=== PATIENT | female | born 1995 | race Hispanic/Latino ===

== ENCOUNTER 2018-12-06 17:59 | Emergency (ER) | payer OTHER, SELFPAY ==
[2018-12-06 18:40] LABS: Absolute Lymphocytes (CBC) 2.7 K/uL (0.7-4.9); Absolute Monocytes 0.5 K/uL (0.1-1.3); Absolute Neutrophil 4.6 K/uL (1.8-8.0); Basophils % 0.6 % (0-1.3); Eosinophils % 1.4 % (0-4.4); Hematocrit 38.1 % (36.0-45.0); Lymphocytes % 33.8 % (15.3-44.8); MPV 9.7 fL (7.6-11.3); Monocytes % 6.7 % (3.3-12.3); RBC Red Blood Cell Count 4.68 M/uL (3.86-4.86)
[2018-12-06 18:51] LABS: Urine Blood 2+ (NEG); Urine Glucose NEGATIVE (NEG); Urine Protein TRACE (NEG)
[2018-12-06 19:10] LABS: BUN Blood Urea Nitrogen 8 mg/dL (7-18); Bicarbonate 25 mmol/L (21-32); Glucose Level 89 mg/dL (74-106); HCG, Quantitative 5812 mIU/mL (1-3); Potassium 3.3 mmol/L (3.5-5.1); Sodium Level 139 mmol/L (136-145)
--- NOTE | 2018-12-06 19:26 | RAD REPORT ---
EXAM DESCRIPTION: US - Transvaginal OB - 12/06/2018 7:06 pm CLINICAL HISTORY: with vaginal bleeding COMPARISON: None. FINDINGS: The uterus a by 5 x 6 centimeters. A gestational sac is present within the endometrium. W ithin this is a yolk sac and pole with a crown-rump length 2 millimeters. Cardiac activity not seen Ovaries normal in size and echotexture 1.8 centimeter left ovarian cyst. An adnexal mass is not noted. No significant free fluid is seen. IMPRESSION: Single intrauterine with an estimated gestational age 5 weeks 3 days ARTEMIO 07/10
--- NOTE | 2018-12-06 19:57 | EDPHYS ---
Physician Documentation [facility] Name: Racquel Rolon Age: 23 yrs Sex: Female : 1995 Arrival Date: 12/06/2018 Time: 18:03 Bed 24 Private MD: ED Physician Frederick Crowder HPI: 12/06 18:14 This 23 yrs old Female presents to ER via Ambulatory with complaints of jmm Vaginal Bleeding, + Preg <12wks. 18:14 The patient presents to the emergency department with vaginal bleeding, that is light. jmm Patient complains of vaginal bleeding with abdominal cramping beginning today. Denies fever, denies vomiting. . 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 - Social history:: Smoking status: Patient/guardian denies using tobacco. - Ebola Screening: : No symptoms or risks identified at this time. ROS: 18:14 Constitutional: Negative for fever, chills, and weight loss, Cardiovascular: Negative jmm for chest pain, palpitations, and edema, Respiratory: Negative for shortness of breath, cough, wheezing, and pleuritic chest pain. 18:14 Abdomen/GI: Positive for abdominal pain. 18:14 : Positive for vaginal bleeding. 18:14 All other systems are negative. Exam: 18:14 Constitutional: This is a well developed, well nourished patient who is awake, alert, jmm and in no acute distress. Head/Face: atraumatic. Eyes: EOMI, no conjunctival erythema appreciated ENT: Moist Mucus Membranes Neck: Trachea midline, Supple Chest/axilla: Normal chest wall appearance and motion. Cardiovascular: Regular rate and rhythm. No edema appreciated Respiratory: Normal respirations, no respiratory distress appreciated 18:14 Abdomen/GI: Inspection: abdomen appears normal, Bowel sounds: normal, Palpation: abdomen is soft and non-tender, in all quadrants. 18:14 Back: ROM is normal. 18:14 Musculoskeletal/extremity: ROM: intact in all extremities. 18:14 Skin: Appearance: Color: normal in color. 18:14 Neuro: Orientation: is normal, Mentation: is normal, Memory: is normal. 18:14 Psych: Behavior/mood is pleasant, cooperative. Vital Signs: 18:11 BP 121 / 66; Pulse 83; Resp 16; Temp 98.6; Pulse Ox 100% ; Weight 104.33 kg; Height 5 sv ft. 5 in. (165.10 cm); Pain 5/10; 19:16 BP 108 / 57; Pulse 70; Resp 17 S; Temp 98.4(O); Pulse Ox 100% on R/A; ca1 20:06 BP 109 / 70; Pulse 76; Resp 17 S; Temp 98.2(O); Pulse Ox 100% on R/A; ca1 18:11 Body Mass Index 38.27 (104.33 kg, 165.10 cm) sv MDM: 18:14 Patient medically screened. [facility] 19:55 Data reviewed: vital signs, nurses notes. Counseling: I had a detailed discussion with natalie the patient and/or guardian regarding: the historical points, exam findings, and any diagnostic results supporting the discharge/admit diagnosis, lab results, radiology results, the need for outpatient follow up, to return to the emergency department if symptoms worsen or persist or if there are any questions or concerns that arise at home. ED course: Patient is alert and non toxic in appearance in the ED. US confirms IUP. Patient advised to follow up with OB and otherwise given strict return precautions for increased pain, weakness, or fever. Patient understood and agrees with the plan of care. . 12/06 18:17 Order name: Quantitative Hcg; Complete Time: 19:15 [facility] 12/06 18:17 Order name: Abo/rh Typing; Complete Time: 19:27 [facility] 12/06 18:17 Order name: Basic Metabolic Panel; Complete Time: 19:15 [facility] 12/06 18:17 Order name: CBC with Diff; Complete Time: 18:53 [facility] 12/06 18:46 Order name: Urine Dipstick--Ancillary (enter results); Complete Time: 18:53 12/06 18:46 Order name: Urine --Ancillary (enter results); Complete Time: 18:53 12/06 18:17 Order name: IV Saline Lock; Complete Time: 18:38 [facility] 12/06 18:17 Order name: Labs collected and sent; Complete Time: 18:38 [facility] 12/06 18:17 Order name: NPO; Complete Time: 18:38 [facility] 12/06 18:17 Order name: Urine Dipstick-Ancillary (obtain specimen); Complete Time: 18:38 [facility] 12/06 18:45 Order name: Transvaginal OB; Complete Time: 19:27 EDMS Administered Medications: No medications were administered Disposition: 12/06/18 19:56 Discharged to Home. Impression: Threatened . - Condition is Stable. - Discharge Instructions: Threatened Miscarriage, Vaginal Bleeding During , First Trimester, Pelvic Rest. - Medication Reconciliation Form, Thank You Letter, Antibiotic Education, Prescription Opioid Use form. - Work release form (12/06/18 20:10). ca1 - Follow up: Private Physician; When: 2 - 3 days; Reason: Recheck today's complaints, Continuance of care, Re-evaluation by your physician. Addendum: 12/09/2018 07:03 Co-signature as Attending Physician, Frederick Crowder MD I agree with the assessment and k dr plan of care. Signatures: Dispatcher [employer] [facility] Amena Oliver RN RN Frederick Crowder MD MD [facility] Augusto Dewey PA PA [facility] Macy Shetty, RN RN ca1 Corrections: (The following items were deleted from the chart) 12/06 18:45 18:19 OB Limited+US.RAD.BRZ ordered. [facility] 20:08 19:56 12/06/2018 19:56 Discharged to Home. Impression: Threatened . Condition ca1 is Stable. Forms are Medication Reconciliation Form, Thank You Letter, Antibiotic Education, Prescription Opioid Use. Follow up: Private Physician; When: 2 - 3 days; Reason: Recheck today's complaints, Continuance of care, Re-evaluation by your physician. [facility]
--- NOTE | 2018-12-06 19:57 | ER ---
Nurse's Notes [facility] Name: Racquel Rolon Age: 23 yrs Sex: Female : 1995 Arrival Date: 12/06/2018 Time: 18:03 Bed 24 Private MD: Diagnosis: Threatened Presentation: 12/06 18:10 Presenting complaint: Patient states: vaginal bleeding that started about an hour ago, sv spotting, pt is 5 weeks . Transition of care: patient was not received from another setting of care. Onset of symptoms was December 06, 2018 at 17:00. Initial Sepsis Screen: Does the patient meet any 2 criteria? No. Patient's initial sepsis screen is negative. Does the patient have a suspected source of infection? No. Patient's initial sepsis screen is negative. Care prior to arrival: None. 18:10 Method Of Arrival: Ambulatory sv 18:10 Acuity: MARTINA 3 sv 18:48 Risk Assessment: Do you want to hurt yourself or someone else? Patient reports no ca1 desire to harm self or others. Triage Assessment: 18:10 General: Appears in no apparent distress. comfortable, well developed, Behavior is sv calm, cooperative, appropriate for age. Pain: Complains of pain in suprapubic area Pain currently is 5 out of 10 on a pain scale. Quality of pain is described as crampy. Neuro: Level of Consciousness is awake, alert, obeys commands, Oriented to person, place, time, situation, Gait is steady. Respiratory: Respiratory effort is even, unlabored, Respiratory pattern is regular, symmetrical. : Reports vaginal bleeding that is spotty. 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 - Social history:: Smoking status: Patient/guardian denies using tobacco. - Ebola Screening: : No symptoms or risks identified at this time. Screenin:19 Abuse screen: Denies threats or abuse. Denies injuries from another. Nutritional ca1 screening: No deficits noted. Tuberculosis screening: No symptoms or risk factors identified. Fall Risk None identified. Assessment: 18:19 General: Appears in no apparent distress. comfortable, Behavior is calm, cooperative, ca1 appropriate for age. Pain: Complains of pain in abdomen and suprapubic area Pain does not radiate. Pain currently is 5 out of 10 on a pain scale. Pain began 1 hour ago. Neuro: Level of Consciousness is awake, alert, obeys commands, Oriented to person, place, time, situation. Cardiovascular: Heart tones S1 S2 present Capillary refill < 3 seconds Patient's skin is warm and dry. Respiratory: Airway is patent Respiratory effort is even, unlabored, Respiratory pattern is regular, symmetrical, Breath sounds are clear bilaterally. GI: Abdomen is round non-distended, Bowel sounds present X 4 quads. Abd is soft and non tender X 4 quads. : Urine is clear, Reports vaginal bleeding that is bright red, moderate flow, since an hour ago. EENT: No deficits noted. No signs and/or symptoms were reported regarding the EENT system. Derm: Skin is intact, is healthy with good turgor, Skin is pink, warm \T\ dry. Musculoskeletal: Circulation, motion, and sensation intact. Capillary refill < 3 seconds. 18:50 Reassessment: Pt to Ultrasound. ca1 19:16 Reassessment: Patient appears in no apparent distress at this time. Patient and/or ca1 family updated on plan of care and expected duration. Pain level reassessed. Patient is alert, oriented x 3, equal unlabored respirations, skin warm/dry/pink. 20:06 Reassessment: Patient appears in no apparent distress at this time. Patient is alert, ca1 oriented x 3, equal unlabored respirations, skin warm/dry/pink. Pt stable. Ambulated out of the ER with friend. No C/O pain. Vital Signs: 18:11 BP 121 / 66; Pulse 83; Resp 16; Temp 98.6; Pulse Ox 100% ; Weight 104.33 kg; Height 5 sv ft. 5 in. (165.10 cm); Pain 5/10; 19:16 BP 108 / 57; Pulse 70; Resp 17 S; Temp 98.4(O); Pulse Ox 100% on R/A; ca1 20:06 BP 109 / 70; Pulse 76; Resp 17 S; Temp 98.2(O); Pulse Ox 100% on R/A; ca1 18:11 Body Mass Index 38.27 (104.33 kg, 165.10 cm) sv ED Course: 18:03 Patient arrived in ED. mr 18:11 Triage completed. sv 18:12 Arm band placed on. sv 18:13 Augusto Dewey PA is PHCP. [facility] 18:13 Frederick Crowder MD is Attending Physician. [facility] 18:18 Macy Shetty, RN is Primary Nurse. ca1 18:19 Patient has correct armband on for positive identification. Placed in gown. Bed in low ca1 position. Call light in reach. Side rails up X 1. Pulse ox on. NIBP on. Warm blanket given. 18:23 Radiology exam delayed due to lab results not completed at this time. (HCG). cy 18:30 Inserted saline lock: 20 gauge in right antecubital area, using aseptic technique. ca1 Blood collected. 19:08 Transvaginal OB In Process Unspecified. EDMS 20:08 No provider procedures requiring assistance completed. IV discontinued, intact, ca1 bleeding controlled, No redness/swelling at site. Pressure dressing applied. Administered Medications: No medications were administered Outcome: 19:56 Discharge ordered by . [facility] 20:08 Discharged to home ambulatory, with friend. ca1 20:08 Condition: stable 20:08 Discharge instructions given to patient, Instructed on discharge instructions, follow up and referral plans. Demonstrated understanding of instructions, follow-up care. 20:08 Patient left the ED. ca1 Signatures: Dispatcher [employer] Amena Stringer RN RN Augusto Dewey PA PA Jennifer Gordon mr Henson, Jorge Alberto cy Macy Shetty, AMAURY RN ca1
== END 2018-12-06 20:08 | disposition home or self-care (01) ==
LOC: ER 17:59
DX: O20.0 Threatened abortion (principal); Z3A.01 Less than 8 weeks gestation of pregnancy
CPT/HCPCS: 36415; 76817; 80048; 81003; 81025; 84702; 85025; 86900; 86901; 99284

== ENCOUNTER 2020-05-26 19:13 | Emergency (ER) | payer SELFPAY ==
[2020-05-26 21:24] LABS: Barbiturates NEGATIVE (NEGATIVE); Benzodiazepines NEGATIVE (NEGATIVE); Cocaine NEGATIVE (NEGATIVE); METHAMPHETAM NEGATIVE (NEGATIVE); Methadone NEGATIVE (NEGATIVE); Opiates NEGATIVE (NEGATIVE); Phencyclidine NEGATIVE (NEGATIVE); THC Cannibis NEGATIVE (NEGATIVE)
[2020-05-26] MEDS ORDERED: PANTOPRAZOLE 40MG TABLET PO ONE (21:28)
[2020-05-26] MEDS ORDERED: MAGNES/ALUMIN/SIMET 30ML UCUP ONE (21:28)
[2020-05-26] MEDS ORDERED: ACETAMINOPHEN 325 MG TABLET ONE (21:28)
[2020-05-26 21:29] LABS: Absolute Lymphocytes (CBC) 2.2 K/uL (0.7-4.9); Basophils % 0.6 % (0-1.3); Hematocrit 38.7 % (36.0-45.0); Lymphocytes % 28.3 % (15.3-44.8); MPV 10.1 fL (7.6-11.3)
[2020-05-26] MEDS ORDERED: LIDOCAINE VISCOUS 2% SOLN 15 ML UDC ONE (21:29)
[2020-05-26 21:43] LABS: BUN Blood Urea Nitrogen 7 mg/dL (7-18); Bicarbonate 29 mmol/L (21-32); Glucose Level 90 mg/dL (74-106); Potassium 3.3 mmol/L (3.5-5.1); Sodium Level 140 mmol/L (136-145)
--- NOTE | 2020-05-26 21:56 | EDPHYS ---
Physician Documentation [facility] Name: Racquel Rolon Age: 24 yrs Sex: Female : 1995 Arrival Date: 05/26/2020 Time: 19:15 Bed 18 Private MD: ED Physician Gilson Crouch HPI: 05/26 21:05 This 24 yrs old Female presents to ER via Ambulatory with complaints of Chest pkl Pain - sharp pain when taking a breath. 21:05 The patient or guardian reports chest pain that is located primarily in the substernal pkl area. The pain does not radiate. Associated signs and symptoms: The patient has no apparent associated signs or symptoms. The chest pain is described as sharp. The patient has not experienced similar symptoms in the past. 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 - Social history:: Smoking status: Patient denies any tobacco usage or history of. ROS: 21:05 Eyes: Negative for injury, pain, redness, and discharge, ENT: Negative for injury, pkl pain, and discharge, Neck: Negative for injury, pain, and swelling. 21:05 Cardiovascular: Positive for chest pain, of the substernal. 21:05 Respiratory: Negative for cough, shortness of breath. 21:05 Abdomen/GI: Negative for abdominal pain, nausea, vomiting, and diarrhea. 21:05 Back: Negative for acute changes. 21:05 : Negative for urinary symptoms. 21:05 MS/extremity: Negative for acute changes, injury or acute deformity. 21:05 Skin: Negative for rash. 21:05 Neuro: Negative for altered mental status, loss of consciousness. Exam: 21:05 Head/Face: Normocephalic, atraumatic. Eyes: Pupils equal round and reactive to light, pkl extra-ocular motions intact. Lids and lashes normal. Conjunctiva and sclera are non-icteric and not injected. Cornea within normal limits. Periorbital areas with no swelling, redness, or edema. ENT: Nares patent. No nasal discharge, no septal abnormalities noted. Tympanic membranes are normal and external auditory canals are clear. Oropharynx with no redness, swelling, or masses, exudates, or evidence of obstruction, uvula midline. Mucous membranes moist. Neck: Trachea midline, no thyromegaly or masses palpated, and no cervical lymphadenopathy. Supple, full range of motion without nuchal rigidity, or vertebral point tenderness. No Meningismus. Chest/axilla: Normal chest wall appearance and motion. Nontender with no deformity. No lesions are appreciated. Cardiovascular: Regular rate and rhythm with a normal S1 and S2. No gallops, murmurs, or rubs. Normal PMI, no JVD. No pulse deficits. Respiratory: Lungs have equal breath sounds bilaterally, clear to auscultation and percussion. No rales, rhonchi or wheezes noted. No increased work of breathing, no retractions or nasal flaring. Abdomen/GI: Soft, non-tender, with normal bowel sounds. No distension or tympany. No guarding or rebound. No evidence of tenderness throughout. Back: No spinal tenderness. No costovertebral tenderness. Full range of motion. Skin: Warm, dry with normal turgor. Normal color with no rashes, no lesions, and no evidence of cellulitis. MS/ Extremity: Pulses equal, no cyanosis. Neurovascular intact. Full, normal range of motion. Neuro: Awake and alert, GCS 15, oriented to person, place, time, and situation. Cranial nerves II-XII grossly intact. Motor strength 5/5 in all extremities. Sensory grossly intact. Cerebellar exam normal. Normal gait. Vital Signs: 19:44 BP 126 / 78; Pulse 82; Resp 16; Temp 98.7; Pulse Ox 99% ; Weight 86.64 kg; Height 5 ft. sv 5 in. (165.10 cm); 22:00 BP 121 / 81; Pulse 81; Resp 16 S; Pulse Ox 100% on R/A; ca1 19:44 Body Mass Index 31.79 (86.64 kg, 165.10 cm) sv MDM: 20:52 Patient medically screened. pkl 21:48 Data reviewed: vital signs, nurses notes, lab test result(s), EKG, radiologic studies, pkl plain films. ED course: Patient feeling better. Discussed lab. EKG and X' rays results with patient. Advised to follow up with PCP next week. Patient understood instruction. 05/26 21:04 Order name: CBC with Diff; Complete Time: 21:43 pkl 05/26 21:04 Order name: Chem 7; Complete Time: 21:45 pkl 05/26 21:04 Order name: D-Dimer; Complete Time: 21:43 pkl 05/26 21:04 Order name: UDS; Complete Time: 21:44 pkl 05/26 21:04 Order name: XRAY CXR (1 view) pkl 05/26 19:53 Order name: EKG; Complete Time: 19:54 sv 05/26 19:53 Order name: EKG - Nurse/Tech; Complete Time: 19:53 sv 05/26 21:04 Order name: Saline Lock; Complete Time: 21:20 pkl Administered Medications: 21:13 Drug: Tylenol 650 mg Route: PO; ca1 22:07 Follow up: Response: No adverse reaction; Pain is decreased ca1 21:15 Drug: GI Cocktail without - (Maalox Suspension 30 ml, Lidocaine Liquid 2 % 15 ca1 ml) Route: PO; 22:08 Follow up: Response: No adverse reaction; Pain is decreased ca1 21:21 Drug: ProTONIX 40 mg Route: PO; ca1 22:07 Follow up: Response: No adverse reaction; Pain is decreased ca1 21:50 Drug: K-Dur 20 mEq Route: PO; ca1 22:07 Follow up: Response: No adverse reaction ca1 Disposition: 05/26/20 21:56 Discharged to Home. Impression: Chest pain. GERD. - Condition is Stable. - Prescriptions for Protonix 40 mg Oral Tablet, Delayed Release (E.C.) - take 1 tablet by ORAL route once daily; 10 tablet. - Medication Reconciliation Form, Thank You Letter, Antibiotic Education, Prescription Opioid Use form. - Follow up: Private Physician; When: 1 week; Reason: Re-evaluation by your physician. - Problem is new. - Symptoms have improved. Signatures: Dispatcher [employer] Amena Stringer RN RN sv Gilson Crouch MD MD pkl Macy Shetty RN RN ca1 Corrections: (The following items were deleted from the chart) 22:13 21:56 05/26/2020 21:56 Discharged to Home. Impression: Chest pain. GERD. Condition is ca1 Stable. Forms are Medication Reconciliation Form, Thank You Letter, Antibiotic Education, Prescription Opioid Use. Follow up: Private Physician; When: 1 week; Reason: Re-evaluation by your physician. Problem is new. Symptoms have improved. pkl
--- NOTE | 2020-05-26 21:56 | ER ---
Nurse's Notes [facility] Name: Racquel Rolon Age: 24 yrs Sex: Female : 1995 Arrival Date: 05/26/2020 Time: 19:15 Bed 18 Private MD: Diagnosis: Chest pain. GERD Presentation: 05/26 19:44 Chief complaint: Patient states: chest pain since this morning. Denies CP, fever. sv Coronavirus screen: Client denies travel out of the [place] in the last 14 days. At this time, the client does not indicate any symptoms associated with coronavirus-19. Ebola Screen: No symptoms or risks identified at this time. Initial Sepsis Screen: Does the patient meet any 2 criteria? No. Patient's initial sepsis screen is negative. Does the patient have a suspected source of infection? No. Patient's initial sepsis screen is negative. Risk Assessment: Do you want to hurt yourself or someone else? Patient reports no desire to harm self or others. Onset of symptoms was May 26, 2020. 19:44 Method Of Arrival: Ambulatory sv 19:44 Acuity: MARTINA 4 sv Triage Assessment: 19:46 General: Appears in no apparent distress. comfortable, Behavior is calm, cooperative, sv appropriate for age. Pain: Complains of pain in chest. Neuro: Level of Consciousness is awake, alert, obeys commands, Oriented to person, place, time, situation, Moves all extremities. Full function Gait is steady. Respiratory: Respiratory effort is even, unlabored, Respiratory pattern is regular, symmetrical. 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 - Social history:: Smoking status: Patient denies any tobacco usage or history of. Screenin:03 Abuse screen: Denies threats or abuse. Denies injuries from another. Nutritional ca1 screening: No deficits noted. Tuberculosis screening: No symptoms or risk factors identified. Fall Risk None identified. Assessment: 19:52 Reassessment: Ok by Dr Crouch to do an EKG. sv 21:03 General: Appears in no apparent distress. comfortable, Behavior is calm, cooperative, ca1 appropriate for age. Pain: Complains of pain in chest Pain does not radiate. Pain currently is 6 out of 10 on a pain scale. Pain began today. Neuro: Level of Consciousness is awake, alert, obeys commands, Oriented to person, place, time, situation. Cardiovascular: Heart tones S1 S2 present Capillary refill < 3 seconds Patient's skin is warm and dry. Respiratory: Airway is patent Respiratory effort is even, unlabored, Respiratory pattern is regular, symmetrical, Breath sounds are clear bilaterally. GI: Abdomen is round non-distended, Bowel sounds present X 4 quads. Abd is soft and non tender X 4 quads. : No signs and/or symptoms were reported regarding the genitourinary system. EENT: No signs and/or symptoms were reported regarding the EENT system. Derm: Skin is intact, is healthy with good turgor, Skin is pink, warm \T\ dry. Musculoskeletal: Circulation, motion, and sensation intact. Capillary refill < 3 seconds. 22:00 Reassessment: Patient appears in no apparent distress at this time. Patient and/or ca1 family updated on plan of care and expected duration. Pain level reassessed. Patient is alert, oriented x 3, equal unlabored respirations, skin warm/dry/pink. Vital Signs: 19:44 BP 126 / 78; Pulse 82; Resp 16; Temp 98.7; Pulse Ox 99% ; Weight 86.64 kg; Height 5 ft. sv 5 in. (165.10 cm); 22:00 BP 121 / 81; Pulse 81; Resp 16 S; Pulse Ox 100% on R/A; ca1 19:44 Body Mass Index 31.79 (86.64 kg, 165.10 cm) sv ED Course: 19:15 Patient arrived in ED. am2 19:44 Arm band placed on. sv 19:45 Triage completed. sv 19:52 EKG completed in triage. Results shown to MD. sv 20:52 Gilson Crouch MD is Attending Physician. pkl 20:57 Macy Shetty, AMAURY is Primary Nurse. ca1 21:03 Patient has correct armband on for positive identification. Placed in gown. Bed in low ca1 position. Call light in reach. Side rails up X 1. Pulse ox on. NIBP on. Warm blanket given. 21:05 No provider procedures requiring assistance completed. Patient maintains SpO2 ca1 saturation greater than 95% on room air. 21:11 UDS Sent. ca1 21:20 UDS Sent. ca1 21:23 Inserted saline lock: 20 gauge in left Blood collected. dh4 21:36 XRAY CXR (1 view) In Process Unspecified. EDMS 22:13 IV discontinued, intact, bleeding controlled, No redness/swelling at site. Pressure ca1 dressing applied. Administered Medications: 21:13 Drug: Tylenol 650 mg Route: PO; ca1 22:07 Follow up: Response: No adverse reaction; Pain is decreased ca1 21:15 Drug: GI Cocktail without - (Maalox Suspension 30 ml, Lidocaine Liquid 2 % 15 ca1 ml) Route: PO; 22:08 Follow up: Response: No adverse reaction; Pain is decreased ca1 21:21 Drug: ProTONIX 40 mg Route: PO; ca1 22:07 Follow up: Response: No adverse reaction; Pain is decreased ca1 21:50 Drug: K-Dur 20 mEq Route: PO; ca1 22:07 Follow up: Response: No adverse reaction ca1 Outcome: 21:56 Discharge ordered by . case 22:13 Discharged to home ambulatory. ca1 22:13 Condition: stable 22:13 Discharge instructions given to patient, Instructed on discharge instructions, follow up and referral plans. medication usage, Demonstrated understanding of instructions, follow-up care, medications, Prescriptions given X 1. 22:13 Patient left the ED. ca1 Signatures: Dispatcher [employer] EDMS Amena Oliver RN RN sv Lam, Pin, MD MD pkl Moreno, Amanda 2 Macy Shetty RN RN ca1 Tao Estevez 4 Corrections: (The following items were deleted from the chart) 19:47 19:44 Pulse 82bpm; Resp 16bpm; Pulse Ox 99%; Temp 98.7F; 86.64 kg; Height 5 ft. 5 in.; sv BMI: 31.7; sv
[2020-05-26] MEDS ORDERED: POTASSIUM CL SA 10 MEQ TAB PO ONE (22:19)
--- NOTE | 2020-05-27 06:04 | EKG ---
Test Date: 2020-05-26 Test Time: 19:49:55 Terminal Gauger: JOSY MEASUREMENT RESULTS: Intervals: Rate: 81 MI: 142 QRSD: 94 QT: 370 QTc: 429 [place]: P: 67 MI: 142 QRS: 69 T: 36 INTERPRETIVE STATEMENTS: Normal sinus rhythm with sinus arrhythmia Normal ECG No previous ECG available for comparison Electronically Signed On 05-27-20 06:02:59 FILM REPLACEMENT ORDERER by Farooq Ward
--- NOTE | 2020-05-27 08:01 | RAD REPORT ---
EXAM DESCRIPTION: RAD - Chest Single View - 05/26/2020 9:36 pm CLINICAL HISTORY: CHEST PAIN COMPARISON: None TECHNIQUE: AP portable chest image was obtained 05/26/2020 9:36 pm . FINDINGS: Lungs are clear. Heart and vasculature are normal. No measurable pleural effusion and no p neumothorax. No acute bony abnormality seen. No acute aortic findings suspected. IMPRESSION: No acute cardiopulmonary process.
[2020-05-27 08:35] VITALS: TEMP 98.7
[2020-05-27 08:36] VITALS: BP 121/81; O2SAT 100
== END 2020-05-26 22:13 | disposition home or self-care (01) ==
LOC: ER 19:13
DX: K21.9 Gastro-esophageal reflux disease without esophagitis (principal)
CPT/HCPCS: 36415; 71045; 80048; 80307; 85025; 85379; 93005; 99284

== ENCOUNTER 2020-10-01 14:28 | Emergency (ER) | payer OTHER, SELFPAY ==
--- OUTSIDE RECORDS SUMMARY | 2020-10-01 14:31 | XMS REPORT | Continuity of Care Document ---
:1995 Author Organization [facility] t Address [address] [place] [address] Care Team Providers Name Role Phone Unavailable Unavailable Unavailable Payers Payer Name Policy Type Policy Number Effective Date Expiration Date S ource Problems This patient has no known problems. Allergies, Adverse Reactions, Alerts Allergy Allergy Status Severity Reaction(s) Onset Inactive Treating Comm ents Source Name Type Date Date Clinician No Known DA Active U [facility] 07-28 [facility]: [facility] Medications This patient has no known medications. Procedures This patient has no known procedures. Results Test Description Test Time Test Comments Results Result [facility] e Comments FALLOPIAN 2019-07-30 TUBE,STERILIZATION 10:32:00 --------RUN DATE: 07/30/19 [facility] PAGE 1 RUN TIME: 1143 Specimen Inquiry RUN USER: INTERFACE --------PATIENT: CHAO REN LOC: [facility] U #: [id number] AGE/SX: ROOM: [facility] RE07/28/19REG DR: Azam Denis : [birth year] BED: A DIS: STATUS: ADM IN TLOC: -------- SPEC #: [id number] RECD: 07/28/19 STATUS: RUPERTO MARVA #: [id number] SHASHA: 07/28/19- SUBM DR: Azam Denis MD ENTERED: 07/29/19 SP TYPE: ELIEL BURR DR: ORDERED: LEVEL II SURGIC/2 CODES: C84058 - FALLOPIAN TUBE PROCEDURES: LEVEL II SURGIC (Incomplete) TISSUES: FALLOPIAN TUBE, NOS - BILATERAL FALLOPIAN TUBES CLINICAL HISTORY Not provided (wpd) FINAL DIAGNOSIS Right fallopian tube, ligation: - completely transected unremarkable fallopian tube Left fallopian tube, ligation: - completely transected unremarkable fallopian tube CPT code(s): 34835 x2 [facility] 07/30/19 GROSS DESCRIPTION ANATOMIC SOURCE OF TISSUE (per Requisition): Right and left fallopian tube (received in 2 containers) Each specimen is labeled with the patient's name and medical record number. Specimen #1 is designated "right fallopian tube" and consists of a 2.0 cm in length and 0.5 cm in diameter pink-purple and hyperemic segment of fallopian tube. The lumen is pinpoint. [employer] sections submitted as A1. Specimen #2 is designated "left fallopian tube" and consists of a 1.8 cm in length and 0.5 cm in diameter pink-purple and hyperemic segment of fallopian tube. The lumen is pinpoint. [employer] sections submitted as B1. marian 07/29/19 Signed Erika Cabello MD 07/30/19 1032 -------- END OF REPORT CBC W/AUTO DIFF 2019-07-29 04:59:00 Test Item Value Reference Range Interpretation Comme nts WHITE BLOOD CELL (test code = WBC) 9.4 K/mm3 6.6-12.1 N RED BLOOD CELL (test code = RBC) 3.84 M/mm3 3.45-5.01 N HEMOGLOBIN (test code = HGB) 10.3 g/dL 10.7-13.9 L HEMATOCRIT (test code = HCT) 32.7 % 32.1-42.1 N MEAN CELL VOLUME (test code = MCV) 85 fL 84.1-94.8 N MEAN CELL HGB (test code = MCH) 26.8 pg 27-35 L MEAN CELL HGB CONCETRATION (test code = MCHC) 31.5 gm/dL 32.2-34. 1 L RED CELL DISTRIBUTION WIDTH (test code = RDW) 13.2 % 12.4-16. 5 N PLATELET COUNT (test code = PLT) 122 K/mm3 133-385 L MEAN PLATELET VOLUME (test code = MPV) 13.2 fl 9.1-12.7 H NEUTROPHIL % (test code = NT%) 60.0 % 56.5-79.4 N LYMPHOCYTE % (test code = LY%) 32.3 % 14.3-34.3 N MONOCYTE % (test code = MO%) 6.8 % 5.1-10.4 N EOSINOPHIL % (test code = EO%) 0.5 % 0.1-3.0 N BASOPHIL % (test code = BA%) 0.2 % 0.1-1.0 N NEUTROPHIL # (test code = NT#) 5.6 K/mm3 LYMPHOCYTE # (test code = LY#) 3.0 K/mm3 MONOCYTE # (test code = MO#) 0.6 K/mm3 EOSINOPHIL # (test code = EO#) 0.05 K/mm3 BASOPHIL # (test code = BA#) 0.0 K/mm3 RBC MORPHOLOGY REQUIRED (test code = RBCM) NORMAL NORMAL PLATELET MORPHOLOGY REQUIRED (test code = PLTMR) NORMAL TARIK L COMPREHENSIVE METABOLIC [id number] 07:51:00 Test Item Value Reference Range Interpretation Comments SODIUM (test code = NA) 140 mEq/L 135-145 N POTASSIUM (test code = K) 4.4 mEq/L 3.5-5.0 N CHLORIDE (test code = CL) 104 mEq/L 100-115 N CARBON DIOXIDE (test code = CO2) 24 mEq/L 22-31 N ANION GAP (test code = GAP) 16.60 10-20 N GLUCOSE (test code = GLU) 78 mg/dL 65-110 N BLOOD UREA NITROGEN (test code = 7 mg/dL 7-18 N BUN) GLOMERULAR FILTRATION RATE (test 123 ml/min >60 N code = GFR) CREATININE (test code = CREAT) 0.6 mg/dL 0.5-1.0 N TOTAL PROTEIN (test code = PROT) 6.0 gm/dL 6.3-8.2 L ALBUMIN (test code = ALB) 2.6 gm/dL 3.4-4.8 L CALCIUM (test code = CA) 8.4 mg/dL 8.4-10.2 N BILIRUBIN TOTAL (test code = 0.3 mg/dL 0.2-1.0 N BILT) SGOT/AST (test code = AST) 38 units/L 15-37 H SGPT/ALT (test code = ALT) 51 units/L 12-78 N ALKALINE PHOSPHATASE TOTAL (test 259 units/L 46-116 H code = ALKP) AG HEPATITIS B [id number] 20:52:00 Test Item Value Reference Range Interpretation Comments AG HEPATITIS B SURFACE (test code NONREACTIVE NONREACTIVE = HBSAG) IS CONSENT FORM SIGNED FOR HIV TESTING? [facility] HEPATITIS C [id number] 20:52:00 Test Item Value Reference Range Interpretation Comments AB HEPATITIS C (test code = NONREACTIVE NONREACTIVE HCVAB) SIGNAL TO CUTOFF (test code = 0.13 <0.80 N CUTOFF) IS CONSENT FORM SIGNED FOR HIV TESTING? B [id number] 20:52:00 Test Item Value Reference Range Interpretation Comments AB TREPONEMA (test code = TREPAB) NONREACTIVE NONREACTIVE IS CONSENT FORM SIGNED FOR HIV TESTING? B HIV 1 20:52:00 Test Item Value Reference Range Interpretation Comments AB HIV 1 2 Nonreactive NonReactive It is recognize d that (test code = currently avail able [id number]) assays for thed etection of antibodies t o HIV-1 and/or HIV-2 ma y notdetect all i nfected individuals. A negative test result newman snot exclude the pos sibility of exposure to or infection withH IV. HIV antibodies may be undetectable in some stages ofthe in fection and in some cli nical conditions. IS CONSENT FORM SIGNED FOR HIV TESTING? YAB HIV 1 20:51:00 Test Item Value Reference Range Interpretation Comments AB HIV 1 2 Nonreactive NonReactive It is recognize d that (test code = currently avail able [id number]) assays for thed etection of antibodies t o HIV-1 and/or HIV-2 ma y notdetect all i nfected individuals. A negative test result newman snot exclude the pos sibility of exposure to or infection withH IV. HIV antibodies may be undetectable in some stages ofthe in fection and in some cli nical conditions. IS CONSENT FORM SIGNED FOR HIV TESTING? YAG HEPATITIS B [id number] 18:21:00 Test Item Value Reference Range Interpretation Comments AG HEPATITIS B SURFACE (test code NONREACTIVE NONREACTIVE = HBSAG) IS CONSENT FORM SIGNED FOR HIV TESTING? YAB HEPATITIS C [id number] 18:21:00 Test Item Value Reference Range Interpretation Comments AB HEPATITIS C (test code = NONREACTIVE NONREACTIVE HCVAB) SIGNAL TO CUTOFF (test code = 0.13 <0.80 N CUTOFF) IS CONSENT FORM SIGNED FOR HIV TESTING? YAB [id number] 18:21:00 Test Item Value Reference Range Interpretation Comments AB TREPONEMA (test code = TREPAB) NONREACTIVE NONREACTIVE IS CONSENT FORM SIGNED FOR HIV TESTING? YAB HIV 1 18:21:00 Test Item Value Reference Range Interpretation Comments AB HIV 1 2 (test code = [id number]) NONREACTIVE IS CONSENT FORM SIGNED FOR HIV TESTING? YAG HEPATITIS B [id number] 17:16:00 Test Item Value Reference Range Interpretation Comments AG HEPATITIS B SURFACE (test code NONREACTIVE NONREACTIVE = HBSAG) IS CONSENT FORM SIGNED FOR HIV TESTING? YAB HEPATITIS C [id number] 17:16:00 Test Item Value Reference Range Interpretation Comments AB HEPATITIS C (test code = HCVAB) NONREACTIVE SIGNAL TO CUTOFF (test code = CUTOFF) <0.80 IS CONSENT FORM SIGNED FOR HIV TESTING? YAB [id number] 17:16:00 Test Item Value Reference Range Interpretation Comments AB TREPONEMA (test code = TREPAB) NONREACTIVE NONREACTIVE IS CONSENT FORM SIGNED FOR HIV TESTING? YAB HIV 1 17:16:00 Test Item Value Reference Range Interpretation Comments AB HIV 1 2 (test code = RUU63RA) NONREACTIVE IS CONSENT FORM SIGNED FOR HIV TESTING? YCBC W/AUTO [id number] 16:25:00 Test Item Value Reference Range Interpretation Comments WHITE BLOOD CELL (test code = WBC) 6.1 K/mm3 6.6-12.1 L RED BLOOD CELL (test code = RBC) 4.13 M/mm3 3.45-5.01 N HEMOGLOBIN (test code = HGB) 11.3 g/dL 10.7-13.9 N HEMATOCRIT (test code = HCT) 35.2 % 32.1-42.1 N MEAN CELL VOLUME (test code = MCV) 85 fL 84.1-94.8 N MEAN CELL HGB (test code = MCH) 27.4 pg 27-35 N MEAN CELL HGB CONCETRATION (test 32.1 gm/dL 32.2-34.1 L code = MCHC) RED CELL DISTRIBUTION WIDTH (test 13.3 % 12.4-16.5 N code = RDW) PLATELET COUNT (test code = PLT) 132 K/mm3 133-385 L IMMATURE PLATELET FRACTION (test 0.0 % 0.0-10.8 N code = IPF) MEAN PLATELET VOLUME (test code = 13.2 fl 9.1-12.7 H MPV) NEUTROPHIL % (test code = NT%) 62.4 % 56.5-79.4 N LYMPHOCYTE % (test code = LY%) 30.8 % 14.3-34.3 N MONOCYTE % (test code = MO%) 5.4 % 5.1-10.4 N EOSINOPHIL % (test code = EO%) 0.8 % 0.1-3.0 N BASOPHIL % (test code = BA%) 0.3 % 0.1-1.0 N NEUTROPHIL # (test code = NT#) 3.8 K/mm3 LYMPHOCYTE # (test code = LY#) 1.9 K/mm3 MONOCYTE # (test code = MO#) 0.3 K/mm3 EOSINOPHIL # (test code = EO#) 0.05 K/mm3 BASOPHIL # (test code = BA#) 0.0 K/mm3 RBC MORPHOLOGY REQUIRED (test code NORMAL NORMAL = RBCM) PLATELET MORPHOLOGY REQUIRED (test NORMAL NORMAL code = PLTMR) - US NHW [id number] 10:31:00 Patient Name: CHAO REN Unit No: [id number] EXAMS: CPT CODE: [id number] [place] [address] [facility] [address] [address] OBSTETRICAL ULTRASOUND REPORT Pat. Name: CHAO REN Pat. No: [id number] Study Date: 06/27/2019 9:20am , Age: 05 1995, 23 Pregnancies: 4, Para 3 LMP:10/31/2018 GA by LMP: 34w1d GA by 1st: 34w1d GA by US: 36w2d GA Selected: 34w1d (LMP) ARTEMIO: 08/07/2019 Referring MD: KEATON Rubio Client Services Specialist: Anuradha Cardenas RDMS, RVT CPT4: [id number] Admitting MD: KEATON Rubio Hist/Ind: SCAN 2 34 WEEKS GROWTH MEASUREMENTS AGE GROWTH EVALUATION Measurement GA Range Srce %for GA Ratios ----- ---- ------- BPD 9.2 cm 38w0d (53b8w-93e9u) Hadl BPD >95 FL/BPD 0.73 (0.71 - 0.87) HC 34.4 cm 39w0d (44f4l-31g2o) Hadl HC >95 FL/AC 0.21 (0.20 - 0.24) APD 10.8 cm APD HC/AC 1.05 (0.94 - 1.13) TAD 10.0 cm TAD CI 0.78 (0.70 - 0.86) AC 32.7 cm 36w6d (54e6s-76k2u) Hadl AC >95 FL 6.7 cm 34w2d (64h7s-43i7m) Hadl FL 52% HL 5.8 cm 33w4d (92w8w-56t1m) Carloz HL 42% GA for sonogram 36w2d (45b9d-76l0e) Weight Estimate: based on (BPD,HC,AC,FL) Hadlock Weight: 2947 gm (8224-6791) Hadlo : 6lbs, 7oz Normal: 2241 gm (8177-6638) Brenn Wt% >90 for 34.1 wks Cervical Length: 3.2 cm Heart Rate: 142 bpm Amniotic Fluid Index: 13.4cm (08.1-24.8) Q1: 4.7cm Q2: 3.0cm Q3: 2.8cm Q4: 2.9cm CLINICAL SUMMARY Type of Gestation: Waters Intrauterine in vertex presentation. size is large for gestational age. growth: Suspect LGA fetus (>90%) motion and organs seen: heartmotion seen body and limb movements observed tone noted Placental location: [facility] NAME: CHAO REN Radiology Department PHYS: Azam Sue [address] : 1995 AGE: 23 SEX: F [place], [place] [address] LOC: Indra.RAD PHONE #: [phone] EXAM DATE: 06/27/2019 STATUS: REG CLI FAX #: [phone] RAD NO: Page 1 Signed Report (CONTINUED) Patient Name: CHAO REN Unit No: [id number] EXAMS: CPT CODE: [id number] [place] [address] <Continued> Anterior Left lateral Placental maturity : Grade 2 There is no evidence of placenta previa. Amniotic fluid volume is normal. Uterus and adnexa: No significant abnormality is seen. Thank you for allowing us to participate in thecare of this patient. Abdulkadir Mccloud M.D. Electronic Signature 06/27/2019 10:31am at 1031 Reported and signed by: Abdulkadir Mccloud MD CC: Azam Denis MD Technologist: Anuradha Cardenas RDMS, RVT Probe: Trnscrbd D/ (1031) [email or web address] Orig Print D/T: S: 06/27/2019 (1031) [facility] NAME: CHAO REN Radiology Department PHYS: Azam Sue [address] : 1995 AGE: 23 SEX: Ind[place] [address] LOC: IanRAD PHONE #:[phone] EXAM DATE: 06/27/2019 STATUS: REG CLI FAX #: [phone] RAD NO: Page 2 Signed Report PatientName: CHAO REN Unit No: [id number] EXAMS: CPT CODE: [id number] US FLW UP [address] <Continued> [facility] NAME: CHAO REN Radiology Department PHYS: Azam Sue [address] : 1995 AGE: 23 SEX: [place] [address] LOC: IanRAD PHONE #: [phone] EXAM DATE: 06/27/2019 STATUS: REG CLI FAX #: [phone] RAD NO: Page 3 Signed Report- US PREG AFTER 2019-03-12 11:37:00 Patient Name: CHAO REN Unit No: [id number] EXAMS: CPT CODE: [id number] US PREG AFTER TRI [address] [facility] [address] [place], [place] [address] OBSTETRICAL ULTRASOUND REPORT Pat. Name: CHAO REN Pat. No: [id number] Study Date: 03/12/2019 10:11am , Age: 4 1995, 23 Pregnancies: 4, Para 3 LMP: 10/31/2018 GA by LMP: 18w6d GA by US: 19w6d GA Selected: 18w6d (LMP) ARTEMIO: 08/07/2019 Referring MD: KEATON Rubio Client Services Specialist: Abby Stafford RDMS CPT4: [id number] Admitting MD: KEATON Rubio Hist/Ind: 1ST SCAN ANATOMY MEASUREMENTS AGE GROWTH EVALUATION Measurement GA Range Srce %for GA Ratios ----- ---- ------- BPD 4.8 cm 20w4d (65j7z-01j5o) Hadl BPD >95 FL/BPD 0.65 HC 17.5 cm 20w0d (87x8g-65c7h) Hadl HC 79% FL/AC 0.21 APD 4.8 cm APD HC/AC 1.16 (1.07 - 1.26) TAD 4.8 cm TAD CI 0.82 (0.70 - 0.86) AC 15.1 cm 20w0d (18w0d- 22w0d) Hadl AC 75% FL 3.1 cm 19w2d (38v2m-64n0z) Hadl FL 57% HL2.9 cm 19w3d (80s9i-41q0t) Carloz HL 60% GA for sonogram 19w6d (41h1q-84x0a) Weight Estimate: based on (BPD,HC,AC,FL) Hadlock Weight: 327 gm (279-374) Hadlock : 0lbs, 11oz Cervical Length: 3.7 cm Heart Rate: 155 bpm MATERNAL ANATOMY Ovaries LxHxW (cm) Right 2.0 x 0.7 x 1.9 Vol: 1.4cc Left3.5 x 1.2 x 2.8 Vol: 6.2cc Ovarian Cysts LxHxW (cm) L1: 1.9 x 1.3 x 1.3 Desc: Corpus Luteum CLINICAL SUMMARY Type of Gestation: Waters Intrauterine in vertex presentation. size is appropriate for gestational age. growth: Consistent with normal growth motion and organs seen: [facility] NAME: CHAO REN Radiology Department PHYS: MARIA LUZ ValdezEdel [address] : 1995 AGE: 23 SEX: F [place] [address] LOC: IanRAD PHONE #: [phone] EXAM DATE: 03/12/2019 STATUS: REG CLI FAX #: [phone] RAD NO: Page 1 Signed Report (CONTINUED) Patient Name: CHAO REN Unit No: [id number] EXAMS: CPT CODE: [id number] US PREG AFTER 1ST TRI [address]85 <Continued> heart motion seen body and limb movements seen Four chamber heart observed Left ventricular outflow tract (LVOT) seen Right ventricular outflow tract (RVOT) seen Normal intracranial anatomy seen Umbilical cord insertion in fetus seen stomach, Renal Fossa, Bladder and Spine seen Three vessel umbilical cord noted abnormalities observed: None seen at this exam Placental location: Anterior Left lateral Placental maturity : Grade 1 There is no evidence of placenta previa. Amniotic fluid volume is normal. Uterus and adnexa: No significant abnormality is seen. Thank you for allowing us to participate in the care of this patient. Elizabeth George M.D. Electronic Signature 03/12/2019 11:37am at 1137 Reported and signed by: Elizabeth George MD CC: Keaton Rubio MD Technologist: Abby Stafford RDMS Probe: Trnscrbd D/ (1137) Isabel Orig Print D/T: S: 03/12/2019 (1137) [facility] NAME: CHAO REN Radiology Department PHYS: MARIA LUZ Rubio [address] : 1995 AGE: 23 SEX: F [place] [address] LOC: IanRAD PHONE #: [phone] EXAM DATE: 03/12/2019 STATUS: REG CLI F AX #: [phone] RAD NO: Page 2 Signed Report Patient Name: CHAO REN Unit No: [id number] EXAMS: CPT CODE: [id number] US PREG AFTER 1ST TRI 09205 <Continued> [facility] NAME: CHAO REN Radiology Department PHYS: MARIA LUZ Rubio [address] : 1995 AGE: 23 SEX: F [place], [place] [address] LOC: Indra.RAD PHONE #: [phone] EXAM DATE: 03/12/2019 STATUS: REG CLI FAX #: [phone] RAD NO: Page 3 Signed Report
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
[2020-10-01] MEDS ORDERED: CYCLOBENZAPRINE 10 MG TAB ONE (16:16)
[2020-10-01] MEDS ORDERED: IBUPROFEN 400 MG TAB ONE (16:16)
[2020-10-01] MEDS ORDERED: IBUPROFEN 200 MG TAB PO ONE (16:16)
[2020-10-01] MEDS ORDERED: TRAMADOL HCL 50 MG TAB ONE (16:18)
[2020-10-02 12:19] VITALS: TEMP 97.7; O2SAT 100
[2020-10-02 12:22] VITALS: BP 115/75
== END 2020-10-01 16:13 | disposition home or self-care (01) ==
LOC: ER 14:28
DX: S13.4XXA Sprain of ligaments of cervical spine, initial encounter (principal); V59.40XA Driver of pick-up truck or van injured in collision with unspecified motor vehicles in traffic accident, initial encounter
CPT/HCPCS: 99283

== ENCOUNTER 2024-04-24 02:15 | Emergency (ER) | payer SELFPAY ==
--- OUTSIDE RECORDS SUMMARY | 2024-04-24 02:18 | XMS REPORT | Continuity of Care Document ---
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 Procedures Procedure Date / Time Performed Performing Clinicia n Source [id number] 2019-07-28 00:00:00 [facility] [id number] 2019-07-28 00:00:00 [facility] Encounters Start Date/Time End Date/Time Encounter Type Admission Type Attending Clinicians Care Facility Care Department Encounter ID Source 2019-07-28 07:45:00 Inpatient José Miguel Denisjoséziyad [facility] [id number] [facility] 2019-07-24 20:42:00 2019-07-24 20:42:00 Outpatient José Miguel Denisjoséziyad [facility] [id number] [facility] Results Test Description Test Time Test Comments Results Resul t Comments Source FALLOPIAN TUBE,STERILIZATION 2019-07-30 10:32:00 --------RUN DATE: 07/30/19 [facility] PAGE 1 RUN TIME: 1143 Specimen Inquiry RUN USER: INTERFACE --------PATIENT: CHAO REN LOC: CLEMENTE U #: [id number] AGE/SX: ROOM: [facility] RE07/28/19REG DR: Azam Denis : 89 BED: A DIS: STATUS: ADM IN TLOC: -------- SPEC #: [id number] RECD: 07/28/19 STATUS: RUPERTO DURHAM #: [id number] SHASHA: 07/28/19- SUBM DR: Azam Denis MD ENTERED: 07/29/19 SP TYPE: [facility] DR: ORDERED: LEVEL II SURGIC/2 CODES: [id number] - FALLOPIAN TUBE PROCEDURES: LEVEL II SURGIC (Incomplete) TISSUES: FALLOPIAN TUBE, NOS - BILATERAL FALLOPIAN TUBES CLINICAL HISTORY Not provided (wpd) FINAL DIAGNOSIS Right fallopian tube, ligation: - completely transected unremarkable fallopian tube Left fallopian tube, ligation: - completely transected unremarkable fallopian tube CPT code(s): 03110 x2 [facility] 07/30/19 GROSS DESCRIPTION ANATOMIC SOURCE OF TISSUE (per Requisition): Right and left fallopian tube (received in 2 containers) Each specimen is labeled with the patient's name and medical record number. Specimen #1 is designated "right fallopian tube" and consists of a 2.0 cm in length and 0.5 cm in diameter pink-purple and hyperemic segment of fallopian tube. The lumen is pinpoint. Construction Management Instructor sections submitted as A1. Specimen #2 is designated "left fallopian tube" and consists of a 1.8 cm in length and 0.5 cm in diameter pink-purple and hyperemic segment of fallopian tube. The lumen is pinpoint. Construction Management Instructor sections submitted as B1. valeria/annita 07/29/19 Signed Erika Cabello MD 07/30/19 1032 -------- END OF REPORT COMPREHENSIVE METABOLIC [id number] 07:51:00* Test Item Value Reference Range Interpretation Comme nts SODIUM (test code = NA) 140 mEq/L 135-145 N POTASSIUM (test code = K) 4.4 mEq/L 3.5-5.0 N CHLORIDE (test code = CL) 104 mEq/L 100-115 N CARBON DIOXIDE (test code = CO2) 24 mEq/L 22-31 N ANION GAP (test code = GAP) 16.60 10-20 N GLUCOSE (test code = GLU) 78 mg/dL 65-110 N BLOOD UREA NITROGEN (test co de = BUN) 7 mg/dL 7-18 N GLOMERULAR FILTRATION RATE ( test code = GFR) 123 ml/min >60 N CREATININE (test code = CREAT) 0.6 mg/dL 0.5-1.0 N TOTAL PROTEIN (test code = PROT) 6.0 gm/dL 6.3-8.2 L ALBUMIN (test code = ALB) 2.6 gm/dL 3.4-4.8 L CALCIUM (test code = CA) 8.4 mg/dL 8.4-10.2 N BILIRUBIN TOTAL (test code = BILT) 0.3 mg/dL 0.2-1.0 N SGOT/AST (test code = AST) 38 units/L 15-37 H SGPT/ALT (test code = ALT) 51 units/L 12-78 N ALKALINE PHOSPHATASE TOTAL ( test code = ALKP) 259 units/L 46-116 H AG HEPATITIS B [id number] 20:52:00* Test Item Value Reference Range Interpretation Comme nts AG HEPATITIS B SURFACE (test code = HBSAG) NONREACTIVE NONREACTIVE IS CONSENT FORM SIGNED FOR HIV TESTING? YAB HEPATITIS C [id number] 20:52:00* Test Item Value Reference Range Interpretation Comme nts AB HEPATITIS C (test code = HCVAB) NONREACTIVE NONREACTIVE SIGNAL TO CUTOFF (test code = CUTOFF) 0.13 <0.80 N IS CONSENT FORM SIGNED FOR HIV TESTING? YAB [id number] 20:52:00* Test Item Value Reference Range Interpretation Comme nts AB TREPONEMA (test code = TREPAB) NONREACTIVE NONREACTIVE IS CONSENT FORM SIGNED FOR HIV TESTING? YAB HIV 1 20:52:00* Test Item Value Reference Range Interpretation Comme nts AB HIV 1 2 (test code = MGQ82VP) Nonreactive NonReactive It is recognized that currently available assays for thedetection of antibodies to HIV-1 and/or HIV-2 may notdetect all infected individuals. A negative test result doesnot exclude the possibility of exposure to or infection withHIV. HIV antibodies may be undetectable in some stages ofthe infection and in some clinical conditions. IS CONSENT FORM SIGNED FOR HIV TESTING? YAB HIV 1 20:51:00* Test Item Value Reference Range Interpretation Comme nts AB HIV 1 2 (test code = [id number]) Nonreactive NonReactive It is recognized that currently available assays for thedetection of antibodies to HIV-1 and/or HIV-2 may notdetect all infected individuals. A negative test result doesnot exclude the possibility of exposure to or infection withHIV. HIV antibodies may be undetectable in some stages ofthe infection and in some clinical conditions. IS CONSENT FORM SIGNED FOR HIV TESTING? YAG HEPATITIS B [id number] 18:21:00* Test Item Value Reference Range Interpretation Comme nts AG HEPATITIS B SURFACE (test code = HBSAG) NONREACTIVE NONREACTIVE IS CONSENT FORM SIGNED FOR HIV TESTING? B HEPATITIS C [id number] 18:21:00* Test Item Value Reference Range Interpretation Comme nts AB HEPATITIS C (test code = HCVAB) NONREACTIVE NONREACTIVE SIGNAL TO CUTOFF (test code = CUTOFF) 0.13 <0.80 N IS CONSENT FORM SIGNED FOR HIV TESTING? YAB [id number] 18:21:00* Test Item Value Reference Range Interpretation Comme nts AB TREPONEMA (test code = TREPAB) NONREACTIVE NONREACTIVE IS CONSENT FORM SIGNED FOR HIV TESTING? YAB HIV 1 18:21:00* Test Item Value Reference Range Interpretation Comme nts AB HIV 1 2 (test code = ZCK88QV) NONREACTIVE IS CONSENT FORM SIGNED FOR HIV TESTING? YAG HEPATITIS B [id number] 17:16:00* Test Item Value Reference Range Interpretation Comme nts AG HEPATITIS B SURFACE (test code = HBSAG) NONREACTIVE NONREACTIVE IS CONSENT FORM SIGNED FOR HIV TESTING? YAB HEPATITIS C [id number] 17:16:00* Test Item Value Reference Range Interpretation Comme nts AB HEPATITIS C (test code = HCVAB) NONREACTIVE SIGNAL TO CUTOFF (test code = CUTOFF) <0.80 IS CONSENT FORM SIGNED FOR HIV TESTING? YAB [id number] 17:16:00* Test Item Value Reference Range Interpretation Comme nts AB TREPONEMA (test code = TREPAB) NONREACTIVE NONREACTIVE IS CONSENT FORM SIGNED FOR HIV TESTING? MALISSAB HIV 1 17:16:00* Test Item Value Reference Range Interpretation Comme nts AB HIV 1 2 (test code = [id number]) NONREACTIVE IS CONSENT FORM SIGNED FOR HIV TESTING? YCBC W/AUTO [id number] 16:25:00* Test Item Value Reference Range Interpretation Comme [...] pg 27-35 N MEAN CELL HGB CONCETRATION ( test code = MCHC) 32.1 gm/dL 32.2-34.1 L RED CELL DISTRIBUTION WIDTH (test code = RDW) 13.3 % 12.4-16.5 N PLATELET COUNT (test code = PLT) 132 K/mm3 133-385 L IMMATURE PLATELET FRACTION ( test code = IPF) 0.0 % 0.0-10.8 N MEAN PLATELET VOLUME (test c ode = MPV) 13.2 fl 9.1-12.7 H NEUTROPHIL % (test code = NT%) 62.4 [...] = BA#) 0.0 K/mm3 RBC MORPHOLOGY REQUIRED (fiona t code = RBCM) NORMAL NORMAL PLATELET MORPHOLOGY REQUIRED (test code = PLTMR) NORMAL NORMAL - [id number] 10:31:00Patient Name: CHAO REN Unit No: [id number] EXAMS: CPT CODE: [id number] [facility] [id number] [address] OBSTETRICAL ULTRASOUND REPORT Pat. Name: CHAO REN Pat. No: [id number] Study Date: 06/27/2019 9:20am , Age: 05 1995, 23 Pregnancies: 4, Para 3 LMP: 10/31/2018 GA by LMP: 34w1d GA by 1st: 34w1d GA by US: 36w2d GA Selected: 34w1d (LMP) ARTEMIO: 08/07/2019 Refe storm MD: KEATON Rubio Satellite Tv Technician: Anuradha Cardenas RDMS, RVT CPT4: USPREGFU Admitting MD: KEATON Rubio Hist/Ind: SCAN 2 34 WEEKS GROWTH MEASUREMENTS AGE GROWTH EVALUATION Measurement GA Range Srce %for GA Ratios ----- ---- ------- BPD 9.2 cm 38w0d (00c9i-65q5b) Hadl BPD >95 FL/BPD 0.73 (0.71 - 0.87) HC 34.4 cm 39w0d (62f4z-70z8x) Hadl HC >95 FL/AC 0.21 (0.20 - 0.24) APD 10.8 cm APD HC/AC 1.05 (0.94 - 1.13) TAD 10.0 cm TAD CI 0.78 (0.70 - 0.86) AC 32.7 cm 36w6d (96g6t-52i2v) Hadl AC >95 FL 6.7 cm 34w2d (26x9b-41x6n) Hadl FL 52% HL 5.8 cm 33w4d (80w9d-60x4p) Carloz HL 42% GA for sonogram 36w2d (94c3x-85g3x) Weight Estimate: based on (BPD,HC,AC,FL) Hadlock Weight: 2947 gm (9540-5331) Hadlo : 6lbs, 7oz Normal: 2241 gm (9649-0278) Brenn Wt% >90 for 34.1 wks Cervical Length: 3.2 cm Heart Rate: 142 bpm Amniotic Fluid Index: 13.4cm (08.1- 24.8) Q1: 4.7cm Q2: 3.0cm Q3: 2.8cm Q4: 2.9cm CLINICAL SUMMARY Type of Gestation: Waters Intrauterine in vertex presentation. size is large for gestational age. growth: Suspect LGA fetus (>90%) motion and organs seen: heart motion seen body and limb movements observed tone noted Placental location: [facility] NAME: CHAO REN Radiology Department PHYS: Azam Sue [address] : 1995 AGE: 23 SEX: Indra [place] [address] LOC: Indra.RAD PHONE #: [phone] EXAM DATE: 06/27/2019 STATUS: REG CLI FAX #: [phone] RAD NO: Page 1 Signed Report (CONTINUED) Patient Name: CHAO REN Unit No: [id number] EXAMS: CPT CODE: [id number] [place] [address] (Continued) Anterior Left lateralPlacental maturity : Grade 2 There is no evidence of placenta previa. Amniotic fluid volume is normal. Uterus and adnexa: No significant abnormality is seen. Thank you for allowing us to participate in the care of this patient. Abdulkadir Mccloud M.D. Electronic Signature 06/27/2019 10:31am at 1031 Reported and signed by: Abdulkadir Mccloud MD CC: Azam Denis MD Technologist: Anuradha Cardenas RDMS, RVT Probe: Trnscrbd D/ (1031) [email or web address] Orig Print D/T: S: 06/27/2019 (1031) [facility] NA ME: CHAO REN Radiology Department PHYS: Azam Sue [address] : 1995AGE: 23 SEX: [place] [address] LOC: Indra.RAD PHONE #: [phone] EXAM DATE: 06/27/2019 STATUS: REG CLI FAX #: [phone] RAD NO: Page 2 Signed Report Patient Name: CHAO REN Unit No: [id number] EXAMS: CPT CODE: [id number] [place] [address] (Continued) [facility] NAME: CHAO REN Radiology Department PHYS: Azam Sue [address] : 1995 AGE: 23 SEX: [place] [address] LOC: IanRAD PHONE #: [phone] EXAM DATE: 06/27/2019 STATUS: REG CLI FAX #: [phone] RAD NO: Page 3 Signed Report- US PREG AFTER [id number] 11:37:00Patient Name: CHAO REN Unit No: [id number] EXAMS: CPT CODE: [id number] US PREG AFTER [id number] [address] [place], [place] [address] OBSTETRICAL ULTRASOUND REPORT Pat. Name: CHAO REN Pat. No: [id number] Study Date: 03/12/2019 10:11am , Age: 05 1995, 23 Pregnancies: 4, Para 3 LMP: 10/31/2018 GA by LMP: 18w6d GA by US: 19w6d GA Selected: 18w6d (LMP) ARTEMIO: 08/07/2019 Referring MD: KARMEN Rubio Satellite Tv Technician: Abby Stafford RDMS CPT4: [id number] Admitting MD: KEATON Rubio Hist/Ind: 1ST SCAN ANATOMY MEASUREMENTS AGE GROWTH EVALUATION Measurement GA Range Srce %for GA Ratios ----- ---- ------- BPD 4.8 cm 20w4d (34s9v-87r4p) Hadl BPD>95 FL/BPD 0.65 HC 17.5 cm 20w0d (18w2d- 21w4d) Hadl HC 79% FL/AC 0.21 APD 4.8 cm APD HC/AC 1.16 (1.07 - 1.26) TAD 4.8 cm TAD CI 0.82 (0.70 - 0.86) AC 15.1 cm 20w0d (31t8f-68x6u) Hadl AC 75% FL 3.1cm 19w2d (98x3g-25o4r) Hadl FL 57% HL 2.9 cm 19w3d (92k7f-11u2b) Carloz HL 60% GA for sonogram 19w6d (42s4r-44l4w) Weight Estimate: based on (BPD,HC,AC,FL) Hadlock Weight: 327 gm (279-374) Hadlock : 0lbs, 11oz Cervical Length: 3.7 cm Heart Rate: 155 bpm MATERNAL ANATOMY Ovaries LxHxW (cm) Right 2.0 x 0.7 x 1.9 Vol: 1.4cc Left 3.5 x 1.2 x 2.8 Vol: 6.2cc Ovarian Cysts LxHxW (cm) L1: 1.9 x 1.3 x 1.3 Desc: Corpus Luteum CLINICAL SUMMARY Type of Gestation: Waters Intrauterine in vertex presentation. size is appropriate for gestational age. growth: Consistent with normal growth motion and organs seen: [facility] NAME: CHAO REN Radiology Department PHYS: MARIA LUZ Rubio [address] : 1995 AGE: 23 SEX: Indra [place], [place] [address] LOC: IanRAD PHONE #: [phone] EXAM DATE: 03/12/2019 STATUS: REG CLI FAX #: [phone] RAD NO: Page 1Signed Report (CONTINUED) Patient Name: CHAO REN Unit No: [id number] EXAMS: CPT CODE: [id number] US PREG AFTER TRI 55798 (Continued) heart motion seen body and limb movements seen Four chamber heart observed Left ventricular outflow tract (LVOT) seen Right ventricular outflow tract (RVOT) seen Normal intracranial anatomy seen Umbilical cord insertion in fetus seen stomach, Renal Fossa, Bladder and Spine seen Three vessel umbilical cord noted abnormalities observed: None seen at this exam Placental location: Anterior Left lateral Placental maturity : Grade 1There is no evidence of placenta previa. Amniotic fluid volume is normal. Uterus and adnexa: No significant abnormality is seen. Thank you for allowing us to participate in the care of this patient.Elizabeth George M.D. Electronic Signature 03/12/2019 11:37am Electro nically Signed by Elizabeth George MD on 03/12/2019 at 1137 Reported and signed by: Elizabeth George MD CC: Keaton Rubio MD Technologist: Abby Stafford RDMS Probe: Trnscrbd D/ (1137) [email or web address] Orig Print D/T: S: 03/12/2019 (1137) [facility] NAME: CHAO REN Radiology Department PHYS: MARIA LUZ Rubio [address] : 1995 AGE: 23 SEX:F [place] [address] LOC: IanRAD PHONE #: [phone] EXAM DATE: 03/12/2019STATUS: REG CLI FAX #: [phone] RAD NO: Page 2 Signed Report Patient Name: CHAO REN Unit No: [id number] EXAMS: CPT CODE: [id number] US PREG AFTER 1ST TRI 64738 (Continued) [facility] NAME: CHAO REN Radiology Department PHYS: MARIA LUZ Rubio [address] : 1995 AGE: 23 SEX: [place] [address] LOC: IanRAD PHONE #: [phone] DATE: 03/12/2019 STATUS: REG CLI FAX #: [phone] RAD NO: Page 3 Signed Report Notes Date/Time Note Provider Source 2019-07-30 08:15:[address] [facility] ([facility]) OB Disch REPORT#:[id number] REPORT STATUS: Signed DATE:07/30/19 TIME: 08 PATIENT: CHAO REN UNIT #: [id number] ROOM/BED: [address] : [birth year] AGE: 23 SEX: F ATTEND: Azam Denis MD ADM AUTHOR: Azam Denis MD * ALL edits or amendments must be made on the electronic/computer document * Subjective Subjective Admission EGA (wks/days): 38 weeks EGA at delivery (wks/days): 38 weeks Status/day: post operative Patient reports: Patient reports: Yes: normal lochia, pain management effective, tolerating po well, voiding well, voiding without pain, tolerating ambulation, flatus. No: complaints, bowel movement, nausea, vomiting, excessive bleeding, abdominal pain, perineal pain, difficulty nursing, headache, blurred vision. Objective General VS: Vital Signs Date Temp Pulse Resp B/P B/P Mean Pulse Ox FiO2 07/29-07/30 97.8-98.4 61-80 18 102-117/65-75 Last Documented: Result Date Time B/P 117/75 07/30 042 Temp 98.3 07/30 0427 Pulse 75 07/30 0427 Resp 18 07/30 0427 Pulse Ox 97 07/28 1140 B/P Mean 92.0 07/28 1045 Patient Weight Weight (lb): 224 Weight (oz): Weight (kg): 101.605 Physical Exam Breasts: Breasts: normal, filling, non-tender Cardiac: normal rhythm, no clinically sig murmur Lungs: clear to auscultation Neuro: Exam: alert, oriented x3, normal speech Abdomen: post gravid, soft, no abnormal tenderness, no guarding, no rebound tenderness Incision site: well approximated edges, medina intact, dry, no drainage, no inflammation Uterus: involution appropriate, non-tender Fundus: firm, non-tender Lochia: normal Episiotomy or laceration: none Vulva/Perineum: normal Results Results: no new labs, vital signs stable Discharge Summary Discharge Summary Free Text A P: A/P: 23 y/o HF w/ gestational thrombocytopenia, is POD #2 s/p elective repeat LTCS/TEJAS/BTL is doing well. * POD #2: Starting Hgb 11.3---> 600cc EBL ---> 10.3. VSS. No signs or symptoms of anemia. Anemia secondary to acute blood loss. Pain well controlled on po pain medication; ambulating w/o difficutly; voiding freely, tolerating regular diet, lochia WNL, and incision dressing removed and incision clean, dry and intact. D/ C epidural today, and continue current post op care otherwise. Patient is candidate for discharge home. * Gestational Thrombocytopenia: Starting platelet count 132--->122. Will continue to monitor as outpatient. No bleeding diathesis. * PNL: Rh+; RPR NR, HIV neg, Rubella immune, Hep B C neg. * Male infant: no overnight issues; in room with patient. Declined circumcision. Date of admission: Date of admission: 07/28/19 Admission diagnosis: previous uterine incision Hospital course: repeat admit, tubal ligation w/, epidural anesthesia, spinal anesthesia, nml postop/postpart care Procedures: epidural anesthesia, spinal anesthesia, repeat CS delivery, tubal ligation at CS Baby A: status: live born Gender: male 1 minute: 8 5 minutes: 9 Anomalies: none noted Nursing data: The data set between the solid lines has been imported from nursing documentation. Any exceptions have been noted below under Provider comments. EGA (weeks/days): 38.4 EGA at admit (weeks): Delivery date infant A: 07/28/19 Delivery time A: 0818 Birthweight (gm) A: 4060 Feeding preference: Gender infant A: Male 1 minute A: 9 5 minutes A: 9 10 minutes A: Provider comments on imported nursing data: [] Plan: routine care, discharge today Instructions: instr and warnings rev'd Diet: regular Activity and restrictions: up ad nydia, may shower, pelvic rest, no intercourse for 6 wks, no driving Contraception discussed: s/p BTL at time of section Discharge meds: Continue taking these medications: PNV/FE FUM/FA ( MULTIVITAMIN) 28 MG IRON-800 MCG TAB 1 TABLET ORAL DAILY. Start taking the following new medications: HYDROcodone/APAP (NORCO 5/325) 1 TAB TAB 1 TABLET ORAL EVERY 3 HOURS NEEDED. as needed for MODERATE PAIN (SCALE 4 - 6) Qty = 45 No Refills DOCUSATE SODIUM (COLACE) 100 MG CAP 100 MILLIGRAM ORAL 0900 2100. Qty = 28 Refills = 1 IBUPROFEN (MOTRIN) 800 MG TAB 800 MILLIGRAM ORAL THREE TIMES A DAY. as needed for pain Qty = 90 Refills = 1 LACTULOSE (CEPHULAC 10 GM/15ML) 10 GRAM/15 ML SYRUP 15 MILLILITERS ORAL DAILY. Qty = 75 Refills = 1 Prescriptions: e-prescribe Rx drug database reviewed: yes Consultation(s): Consultation performed: anesthesia Reason for consultation: anesthesia Discharge condition: stable Discharge to: home Follow up in: 2 weeks Agency referral: none Discharge diagnosis: full-term uncomp delivery, previous uterine incision, anemia Discharge management: greater than 30 mins Time spent: Time spent with patient (minutes): 35 >50% spent on counseling/coordination of care: yes at 0818 RPT #:[id number] END OF REPORT [facility] 2019-07-30 08:09:00 [facility] OB-VENEER SAWYER Progress Note REPORT#:[id number] REPORT STATUS: Signed DATE:07/30/19 TIME: 08 PATIENT: CHAO REN UNIT #: [id number] ROOM[address]BED: [address] : [birth year] AGE: 23 SEX: F ATTEND: Azam Denis MD ADM AUTHOR: Azam Denis MD * ALL edits or amendments must be made on the electronic/computer document * Subjective Chief Complaint: Post Op Day #2 Patient reports: Patient reports: Yes ambulating, Yes pain controlled, Yes tolerating diet, Yes vaginal bleeding, No complaints, No abdominal pain, No back pain, No blurry vision, No contractions, No fever, No headache, No nausea, No pelvic pain, No pelvic pressure, No vaginal fluid leaking Objective Current Medications Medications: Active Meds + DC'd Last 24 Hrs Acetaminophen 650 MG Q4H PRN PRN PO Hydrocodone Bitart/Acetaminophen 1 TAB Q3H PRN PRN PO Zolpidem Tartrate 5 MG BEDTIME PRN PRN PO Ibuprofen 600 MG Q6H PO (DC) Hydroxyzine HCl 25 MG ANES Q3H PRN PRN PO Ketorolac Tromethamine 15 MG ANES Q6H PRN PRN IM Ketorolac Tromethamine 30 MG ANES Q6H PRN PRN IV Meperidine HCl 250 ML ANES ASDIR EPIDURAL (CKD) Nalbuphine HCl 5 MG ANES Q3H PRN PRN IM Naloxone HCl 0.4 MG ANES ASDIR PRN IV Simethicone 80 MG TID AC PO Al Hydrox/Mg Hydrox/Simethicone 30 ML ASDIR PRN PO Cetylpyridinium Chloride 1 KEITH ASDIR PRN MM Diphenhydramine HCl 25 MG Q6H PRN PRN PO Docusate Sodium 100 MG 0900,2100 PO Hydrocortisone/Pramoxine 1 GM ASDIR PRN RECTAL (CKD) Lactated Ringer's 1,000 ML ASDIR IV Lactulose 20 GM DAILY PRN PRN PO Magnesium Hydroxide 30 ML BID PRN PRN PO Measles/Mumps/Rubella Vaccine Live 1 VIAL BEFORE DISCHG PRN SUBQ Methylergonovine Maleate 0.2 MG ASDIR PRN IM Misoprostol 1,000 MCG ASDIR PRN RECTAL Misoprostol 1,000 MCG ASDIR PRN PO (CKD) Multivi/Iron Carb/Fe Sulf/FA/Prenat 1 EA DAILY PO Promethazine HCl 25 MG Q6H PRN PRN IM Physical Exam VS/I O: Last Documented: Result Date Time B/P 117/75 07/307 Temp 98.3 07/30 0427 Pulse 75 07/30 0427 Resp 18 07/30 042 Pulse Ox 97 07/28 1140 B/P Mean 92.0 07/28 1045 Vital Signs Date Temp Pulse Resp B/P B/P Mean Pulse Ox FiO2 07/29-07/30 97.8-98.4 61-80 18 102-117/65-75 24 hour I O ending at 0700: 07/30 0700 07/29 1900 Intake Total Output Total 1300.00 Balance -1300.00 Output, Other 1300.00 Patient Weight Weight (lb): 224 Weight (oz): Weight (kg): 101.605 General Appearance: alert, awake, no acute distress, conversant, face symmetrical Wound/incision: Location: Pfannenstiel Site condition: dressing clean dry, dressing intact, edges approximated, incision intact, no drainage, no ecchymosis, no erythema Neck; full range of motion Breast: symmetrical, no tenderness Cardiovascular: regular rate and rhythm Respiratory: clear to auscultation, no distress Abdomen: soft, no distention, no guarding, no rebound Genitourinary: no flank pain, no arteaga Extremities: full range of motion, moves all, no calf tnederness Skin: dry, intact Psychiatry: normal affect, normal judgment/insight, normal mood, not homicidal, not suicidal, no hallucinations Uterus: normal Fundus: non-tender, firm Results Results: no new labs, vital signs stable Diagnosis, Assessment Plan Free Text A P: A/P: 23 y/o HF w/ gestational thrombocytopenia, is POD #2 s/p elective repeat LTCS/TEJAS/BTL is doing well. * POD #2: Starting Hgb 11.3---> 600cc EBL ---> 10.3. VSS. No signs or symptoms of anemia. Anemia secondary to acute blood loss. Pain well controlled on po pain medication; ambulating w/o difficutly; voiding freely, tolerating regular diet, lochia WNL, and incision dressing removed and incision clean, dry and intact. D/ C epidural today, and continue current post op care otherwise. Patient is candidate for discharge home. * Gestational Thrombocytopenia: Starting platelet count 132--->122. Will continue to monitor as outpatient. No bleeding diathesis. * PNL: Rh+; RPR NR, HIV neg, Rubella immune, Hep B C neg. * Male infant: no overnight issues; in room with patient. Declined circumcision. --disposition: d/c home today Code status: full code at 0813 RPT #:[id number] END OF REPORT [facility] 2019-07-29 12:50:[address] [facility] ([facility]) OB-VENEER SAWYER Progress Note REPORT#:[id number] REPORT STATUS: Signed DATE:07/29/19 TIME: 1250 PATIENT: CHAO ERN UNIT #: [id number] ROOM/BED: [address] : [birth year] AGE: 23 SEX: F ATTEND: Azam Denis MD ADM AUTHOR: Azam Denis MD * ALL edits or amendments must be made on the electronic/computer document * Subjective Chief Complaint: Post Op Day #1 Patient reports: Patient reports: Yes pain controlled, Yes tolerating diet, Yes vaginal bleeding, No complaints , No abdominal pain, No ambulating, No back pain, No blurry vision, No contractions, No fever, No headache, No nausea, No pelvic pain, No pelvic pressure, No vaginal fluid leaking Objective Current Medications Medications: Active Meds + DC'd Last 24 Hrs Acetaminophen 650 MG Q4H PRN PRN PO Hydrocodone Bitart/Acetaminophen 1 TAB Q3H PRN PRN PO Zolpidem Tartrate 5 MG BEDTIME PRN PRN PO Ibuprofen 600 MG Q6H PO (DC) Bupivacaine HCl/Dextrose 2 ML .STK-MED ONE ZCHARGE (DC) Lidocaine/Epinephrine 20 ML .STK-MED ONE ZCHARGE (DC) Oxytocin 30 UNITS .STK-MED ONE ZCHARGE (DC) Sodium Chloride 10 ML .STK-MED ONE ZCHARGE (DC) Hydroxyzine HCl 25 MG ANES Q3H PRN PRN PO Ketorolac Tromethamine 15 MG ANES Q6H PRN PRN IM Ketorolac Tromethamine 30 MG ANES Q6H PRN PRN IV Meperidine HCl 250 ML ANES ASDIR EPIDURAL (CKD) Nalbuphine HCl 5 MG ANES Q3H PRN PRN IM Naloxone HCl 0.4 MG ANES ASDIR PRN IV Simethicone 80 MG TID AC PO Al Hydrox/Mg Hydrox/Simethicone 30 ML ASDIR PRN PO Cetylpyridinium Chloride 1 KEITH ASDIR PRN MM Diphenhydramine HCl 25 MG Q6H PRN PRN PO Docusate Sodium 100 MG 0900,2100 PO Hydrocortisone/Pramoxine 1 GM ASDIR PRN RECTAL (CKD) Ketorolac Tromethamine 10 MG Q6H PO (DC) Lactated Ringer's 1,000 ML ASDIR IV Lactulose 20 GM DAILY PRN PRN PO Magnesium Hydroxide 30 ML BID PRN PRN PO Measles/Mumps/Rubella Vaccine Live 1 VIAL BEFORE DISCHG PRN SUBQ Methylergonovine Maleate 0.2 MG ASDIR PRN IM Misoprostol 1,000 MCG ASDIR PRN RECTAL Misoprostol 1,000 MCG ASDIR PRN PO (CKD) Multivi/Iron Carb/Fe Sulf/FA/Prenat 1 EA DAILY PO Oxytocin 500 ML ASDIR IV (DC) Promethazine HCl 25 MG Q6H PRN PRN IM Acetaminophen 1,000 MG PACU ONCE PRN PO (DC) Physical Exam VS/I O: Last Documented: Result Date Time B/P 107/71 07/29 0825 Temp 97.9 07/29 0825 Pulse 61 07/29 0825 Resp 18 07/29 0825 Pulse Ox 97 07/28 1140 B/P Mean 92.0 07/28 1045 Vital Signs Date Temp Pulse Resp B/P B/P Mean Pulse Ox FiO2 07/28-07/29 97.7-98.1 61-76 18-20 107-121/66-75 24 hour I O ending at 0700: 07/29 0700 07/28 1900 Intake Total 3350.00 Output Total 750.00 2250.00 Balance -750.00 1100.00 Intake, Other 3350.00 Output, Other 750.00 2250.00 Patient Weight Weight (lb): 224 Weight (oz): Weight (kg): 101.605 General Appearance: alert, awake, no acute distress, conversant, face symmetrical Wound/incision: Location: Pfannenstiel Site condition: dressing clean dry, dressing intact Neck; full range of motion Breast: symmetrical, no tenderness Cardiovascular: regular rate and rhythm Respiratory: clear to auscultation, no distress Abdomen: soft, no distention, no guarding, no rebound Genitourinary: no flank pain, no arteaga Extremities: full range of motion, moves all, no calf tnederness Skin: dry, intact Psychiatry: normal affect, normal judgment/insight, normal mood, not homicidal, not suicidal, no hallucinations Uterus: normal Fundus: non-tender, firm Results Findings/Data: Laboratory Tests 07/29 0427 Hematology WBC (6.6 - 12.1 K/mm3) 9.4 RBC (3.45 - 5.01 M/mm3) 3.84 Hgb (10.7 - 13.9 g/dL) 10.3 L Hct (32.1 - 42.1 %) 32.7 MCV (84.1 - 94.8 fL) 85 MCH (27 - 35 pg) 26.8 L MCHC (32.2 - 34.1 gm/dL) 31.5 L RDW (12.4 - 16.5 %) 13.2 Plt Count (133 - 385 K/mm3) 122 L MPV (9.1 - 12.7 fl) 13.2 H Neut % (Auto) (56.5 - 79.4 %) 60.0 Lymph % (Auto) (14.3 - 34.3 %) 32.3 [place] % (Auto) (5.1 - 10.4 %) 6.8 Eos % (Auto) (0.1 - 3.0 %) 0.5 Baso % (Auto) (0.1 - 1.0 %) 0.2 Neut # (Auto) (K/mm3) 5.6 Lymph # (Auto) (K/mm3) 3.0 [place] # (Auto) (K/mm3) 0.6 Eos # (Auto) (K/mm3) 0.05 Baso # (Auto) (K/mm3) 0.0 Results: labs reviewed, vital signs stable Diagnosis, Assessment Plan Free Text A P: A/P: 23 y/o HF is POD #1 s/p elective repeat LTCS/TEJAS/BTL is stable. * POD #1: Starting Hgb 11.3---> 600cc EBL ---> 10.3. VSS. No signs or symptoms of anemia. Anemia secondary to acute blood loss. Pain well controlled with epidural; not yet ambulating; voiding freely, tolerating regular diet, lochia WNL, and incision dressing clean, dry and intact. D/C epidural on POD #2, ambulate in hallway at least TID today and continue current post op care otherwise. * PNL: Rh+; RPR NR, HIV neg, Rubella immune, Hep B C neg. * Male infant: no overnight issues; in room with patient. Declined circumcision. --disposition: anticipate d/c home in the next 1-2 days Code status: full code at 1254 RPT #:[id number] END OF REPORT [facility] 2019-07-28 07:28:00 [facility] ([facility]) OB Delivery Note REPORT#:[id number] REPORT STATUS: Signed DATE:07/28/19 TIME: 727 PATIENT: CHAO REN UNIT #: [id number] ROOM/BED: [address] : 94 AGE: 23 SEX: F ATTEND: Azam Denis MD ADM AUTHOR: Azam Denis MD * ALL edits or amendments must be made on the electronic/computer document * OB Delivery Nursing Documentation Review Nursing data: The data set between the solid lines has been imported from nursing documentation. Any exceptions have been noted below under Provider comments. _ ROM date: 07/28/19 ROM time: 817 Membranes rupture method: AROM Amniotic fluid color: Clear Amniotic fluid amount: EGA (weeks/days): 38.4 EGA at admit (weeks): EGA at delivery (weeks): Steroids prior to arrival: Antibiotic prophylaxis given: Yes [place] evaluation at delivery: Delivery date A: 07/28/19 Delivery time A: 0818 Birthweight (gm) A: 4060 Weight (lb) infant A: Weight (oz) infant A: Gender A: Male 1 minute infant A: 9 5 minutes A: 9 10 minutes A: Cord pH obtained A: Vacuum time infant A: Vacuum # pulls A: Vacuum # popoffs A: __ Provider comments on imported nursing data: [] Pre-delivery Meds prior to delivery: Ancef Seaton evaluation at delivery: NRP certified personnel Admission EGA (wks/days): 38 weeks EGA at delivery (wks/days): 38 weeks General VS: Last Documented: Result Date Time B/P Mean 97.0 07/28 652 B/P 134/76 07/28 06 Pulse 67 07/28 0653 Membranes: AROM ROM date: 07/28/19 Amniotic fluid: clear Labor onset: Date: 07/28/19 Time: 08 Baby A Information Baby A information Delivery date: 07/28/19 status: live born Wt of baby (grams): 4040 Wt of baby (lbs/oz): 8lbs 15oz Gender: male 1 minute: 8 5 minutes: 9 Presentation: vertex Anomalies: none noted ABG details Baby A Cord blood gases: not collected Nuchal cord Baby A Nuchal cord: no Anomalies: none noted Delivery section Abdominal incision: Pfannenstiel Primary indication: previous , hx of uterine window Priority: scheduled : : contraindicated Antibiotic prior to incision: 1 dose )(SCDs applied activated: Yes Incision: low transverse Hemorrhage: Normal amt of PP bleed Consent: indication discussed, questions answered, pt consent to op delivery 's condition: infant stable in room Operative Note-Full Nursing Data: The data set between the solid lines has been imported from nursing documentation. Any exceptions have been noted below under Provider comments. _ ROM date: 07/28/19 ROM time: 08 Membranes rupture method: AROM Amniotic fluid color: Clear Amniotic fluid amount: EGA (weeks/days): 38.4 EGA at admit (weeks): EGA at delivery (weeks): Steroids prior to arrival: Antibiotic prophylaxis given: Yes evaluation at delivery: Delivery date A: 07/28/19 Delivery time infant A: 0818 Birthweight (gm) A: 4060 Weight (lb) A: Weight (oz) A: Gender A: Male 1 minute infant A: 9 5 minutes infant A: 9 10 minutes A: Cord pH obtained infant A: Vacuum time A: Vacuum # pulls infant A: Vacuum # popoffs A: __ Provider comments on imported nursing data: [] )(Start date: 07/28/19 )(Start time: 808 )(Pre-procedure diagnosis: Single Intrauterine , Prior section )(Post-procedure diagnosis: same as pre-procedure dx )(Procedures performed: Low Transverse Section, Lysis of Adhesions, Bilateral Tubal Ligation )(Technique/Procedure: The patient was taken to the operating room where combined spinal/epidural anesthesia was administered without difficulty. After anesthesia was found to be adequate, the patient was prepped and draped in the usual sterile fashion in the dorsal supine position with a left-garcia tilt. A Pfannenstiel skin incision was made with the scalpel and carried through to the underlying layer of fascia using the Bovie. The fascia was incised in the midline and extended laterally using Barrientos scissors. Ace clamps were used to elevate the superior aspect of the fascial incision, which was elevated, and the underlying rectus muscles were dissected off bluntly and using Barrientos scissors. Attention was then turned to the inferior aspect of the fascial incision, which in similar fashion was grasped with Ace clamps, elevated, and the underlying rectus muscles were dissected off bluntly and using Barrientos scissors. The rectus muscles were dissected in the midline. The peritoneum was inadvertently entered after dissecting the rectus muscles off the fascia. At this point we noted thin adhesions involving the lower uterine segment and the peritoneum. These were ligated using the electrocautery, while maintaining good visualization of the bladder. The bladder blade was inserted. The vesicouterine peritoneum was identified with pickups and entered sharply using Metzenbaum scissors. This incision was extended laterally and the bladder flap was created digitally. The bladder blade was reinserted. The lower uterine segment was incised in a transverse fashion using the scalpel and extended using the Garcia maneuver. An Maria Ines clamp was used to rupture the amniotic sac, and clear fluid was noted. The infant was subsequently delivered atraumatically. The nose and mouth were bulb suctioned. The cord was clamped and cut. The infant was subsequently handed to the awaiting nursery nurse. The placenta was then manually extracted intact with a 3-vessel cord noted. The uterus was exteriorized and cleared of all clots and debris. After exteriorizing the uterus we noted thin adhesions involving the uterine fundus and the omentum. These were ligated using the electrocautery, and hemostasis was noted. The uterine incision was repaired in 2 layers using 0 vicryl suture. Hemostasis was visualized. At this point we turned our attention to the left fallopian tube, which was then grasped with a Gridley clamp. A window was created in an avascular plane using the electrocautery. The tube was ligated using 0-plain gut suture x 2 and a 3cm segment of the left fallopain tube was excised and sent to pathology for assessment. This was repeated on the contralateral side. Hemostasis was noted prior to moving to the contralateral side, and after completing the contralateral side. The uterus was returned to the abdomen. The paracolic gutters were cleared of all clot and debris. The uterine incision was re-examined and was noted to be hemostatic. The ligated tubal ends were also reassessed, and noted to be hemostatic. The rectus muscles were re-approximated in the midline using 3-0 Vicryl. The fascia was closed with 0 Vicryl, the subcutaneous layer was closed with 3-0 plain gut, and the skin was closed with Insorb absorbable medina, and sterristrip and pressure dressing applied. Sponge, lap, and instrument counts were correct x2. The patient was stable at the completion of the procedure and was subsequently transferred to the recovery room in stable condition. Throughout the entire case Dr. Ngo acted as assistant chief nursing officer. She maintained protection and retraction so that the procedure could be safely performed. She maintained suction for visualization, provided abdominal pressure that helped facility the safe delivery of the infant, and she participated in the positioning of the patient and closure of the abdomen. Without her assistance, this procedure could not have been performed safely or per accepted medical standards; therefore, her assistance was medially indicated and necessary. )(Primary Surgeon: Azam Denis )(Vp Clinical(s): Mildred Ngo )(Anesthesia: combined spinal/epi Indications: Prior section, contraindicated )(Operative findings: Male infant in cephalic presentation. No nuchal cord. Normal appearing uterus, fallopian tubes and ovaries. Filmy adhesions involving the lower uterine segment and peritoneum. Omental adhesions noted involving the uterine fundus. )(Complications: none )( QBL (ml's): 600 )(Specimens removed/altered: placenta, Bilateral Fallopian tube segment Cultures sent: No Drain(s)/tube(s): Arteaga catheter )(Implant(s): none Fluids: 2L LR Urine output: 150mL Disposition: PACU, stable Recommendations: Recommend repeat section should incidental occur. Counts: Sponge count: correct Instrument count: correct Needle count: correct Cottonoid count: correct Wound class: clean-contaminated at 1142 RPT #:[id number] END OF REPORT [facility] 2019-07-28 07:03:00 [facility] ([facility]) OB Admission / H P REPORT#:[id number] REPORT STATUS: Signed DATE:07/28/19 TIME: 07 PATIENT: CHAO REN UNIT #: [id number] ROOM/BED: [facility] : 94 AGE: 23 SEX: F ATTEND: Azam Denis MD ADM AUTHOR: Azam Denis MD * ALL edits or amendments must be made on the electronic/computer document * OB Admission H P Hx Nursing Documentation Review Nursing data: The data set between the solid lines has been imported from nursing documentation. Any exceptions have been noted below under Provider comments. Current data Steroids prior to arrival: ROM date: ROM time: EGA (weeks/days): 38.4 EGA at admit (weeks): EDC date: 08/07/19 Prior history : 4 Para: 3 Term: : Abortions spontaneous: Abortions induced: Living children: Ectopic: Stillbirths: Live births: deaths: Number of previous C/S: Reported maternal labs/data Blood type: Rh type: Rubella: Hepatitis B: HIV exposure test: VDRL: Group B beta strep: Rho(D) immune globulin this preg: Monitor mode - UA: Feeding preference: Provider comments on imported nursing data: [] Chief complaint: scheduled HPI: 23 y/o HF at 38w4d by LMP who is prior c/s x 3, presents for scheduled section secondary to h/o uterine window. She denies decreased movement, vaginal bleeding, contractions, leakage of fluid, or symptoms of pre- E. history: : 4 Term: 3 : 0 Abortus: 0 Living children: 3 Complications (prev preg): none Previous : low uterine trans incis Number of prev : 3 Indication for prior : abnormal FHR tracing, repeat elective Current : Admission EGA (wks/days): 38 weeks EGA based on: LMP Conditions of : gestational thrombocytopenia Labs: Rh: positive Rubella: immune Hepatitis B: negative HIV: negative STD: negative Syphilis: currently negative Procedures: none Genetic testing: none Past medical history: denies PMH Past surgical history: Social history: employed, , no alcohol use, no tobacco use, no drug use Family history Family history was reviewed; no changes noted. Medications: Home Medications: PNV/FE FUM/FA ( MULTIVITAMIN) 1 TAB PO DAILY Allergies Coded Allergies: No Known Drug Intolerances (NONE 07/28/19) Review of Systems GI: Denies: abdominal pain, constipation, diarrhea, GERD, nausea, vomiting. : Reports: , previous pregnancies. Denies: dysuria, nocturia, pelvic pain , vaginal bleeding, vaginal discharge. All systems rev neg: except as marked Objective General VS: Patient Weight Weight (lb): 224 Weight (oz): Weight (kg): 101.538822 Physical Exam HEENT: normocephalic w/o injury Cardiac: regular rate and rhythm Lungs: clear to auscultation Breasts: deferred Neuro: Exam: alert, oriented x3, normal speech Abdomen: gravid, soft, no abnormal tenderness, no guarding Uterine activity: Monitor: toco Frequency (description): none Resting tone: relaxed Tachysystole: No Pelvic exam: Pelvis clinically adequate: yes, inlet appears appropriate, pubic bone config appropr, no midpelvic contraction Vulvar lesions: none, no evidence herpetic les, no evidence of other STD Vagina: normal, non-septated, w/o apparent lesions Uterus size in weeks: 39 Exam: soft, non-tender, approp size for gest age Cervical/ exam: Dilatation (cm): 0 - closed Effacement (%): 0 Est wt (gms): 3300 Suspected macrosomia: No Suspected > 5000 grams: No station: - 4 presentation: cephalic Membranes: Membranes: Intact Diagnosis, Assessment Plan Diagnosis, Assessment Plan Free Text A P: A/P: 23 y/o HF at 38w4d by LMP who is prior c/s x 3, newly diagnosed gestational thrombocytopenia, presents for scheduled c/s. * Scheduled c/s: Pt intact; no acute signs of labor. History of uterine window. Risks, benefits and alternatives were discussed, and all questions answered. Will proceed as planned. * Gestational Thrombocyotpenia: Starting platelet count 134. Will trend post op. Consultation(s): Consultation performed: anesthesia Reason for consultation: anesthesia at 0710 [facility] #:[id number] END OF REPORT [facility]
[2024-04-24 02:49] LABS: Absolute Basophils 0.1 K/uL (0-0.5); Absolute Eosinophils 0.1 K/uL (0-0.5); Absolute Lymphocytes (CBC) 3.4 K/uL (0.7-4.9); Absolute Monocytes 0.6 K/uL (0.1-1.3); Absolute Neutrophil 5.6 K/uL (1.8-8.0); Basophils % 0.9 % (0-1.3); Hematocrit 41.1 % (36.0-45.0); Hemoglobin 13.6 g/dL (12.0-15.0); Lymphocytes % 34.7 % (15.3-44.8); MCH 27.3 pg (27.0-35.0); MCHC 33.1 g/dL (32.0-36.0); MCV 82.3 fL (80-100); MPV 10.1 fL (7.6-11.3); Monocytes % 6.2 % (3.3-12.3); Neutrophils % 57.2 % (41.7-73.7); Platelets 188 thou/uL (152-406); Red Cell Distribution Width 14.1 % (12.1-15.2)
[2024-04-24] MEDS ORDERED: NA CHLORIDE 0.9% 1,000 ML ONE (02:54)
[2024-04-24] MEDS ORDERED: KETOROLAC 30 MG/ML INJ ONE (02:54)
[2024-04-24 02:59] LABS: Specific Gravity 1.025 (1.005-1.030); Sqamous Epithelial <5 /HPF (None Seen); Urine Bacteria <20 /HPF (<20); Urine Bilirubin NEGATIVE (Negative); Urine Blood Negative (Negative); Urine Clarity Turbid (Clear); Urine Color Light-Yellow (Yellow); Urine Crystals Unidentified Few /HPF (None Seen); Urine Culture Reflex Order REFLEXED; Urine Glucose NEGATIVE (Negative); Urine Ketones NEGATIVE (Negative); Urine Microscopic Reflex YN ORDER UMIC; Urine Mucus Slight /HPF (None Seen); Urine Nitrite 1+ (Negative); Urine Protein NEGATIVE (Negative); Urine RBC <5 /HPF (None Seen); Urine Urobilinogen Normal (Normal); Urine WBC 20-50 /HPF (<5); Urine pH 5.5 (5.0-7.0)
[2024-04-24 03:00] LABS: Specific Gravity 1.025 (1.005-1.030)
[2024-04-24 03:06] LABS: Albumin 3.9 g/dL (3.4-5.0); Anion Gap 9.6 mEq/L (5.0-15.0); Bilirubin Total 0.4 mg/dL (0.2-1.0); Potassium 3.6 mEq/L (3.5-5.1); Protein, Total 7.9 g/dL (6.4-8.2)
--- NOTE | 2024-04-24 04:53 | ER ---
Nurse's Notes [facility] Name: Racquel Rolon Age: 28 yrs Sex: Female : 1995 Arrival Date: 04/24/2024 Time: 02:15 Bed 5 Private MD: Diagnosis: Other cholelithiasis without obstruction;Acute right upper abdominal pain, cholelithiasis without cholecystitis Presentation: 04/24 02:33 Chief complaint: Patient states: I woke up at around 1:20 with severe pain in the right kd3 lower side of my stomach. I do have my appendix. My last bowl movement was this morning when I got up and it was normal for me. I have never felt pain like this before. It hurts when you push in on my stomach but not when you let go. Coronavirus screen: Vaccine status: Patient reports being unvaccinated. Ebola Screen: No symptoms or risks identified at this time. Initial Sepsis Screen: Does the patient meet any 2 criteria? No. Patient's initial sepsis screen is negative. Does the patient have a suspected source of infection? No. Patient's initial sepsis screen is negative. Risk Assessment: Do you want to hurt yourself or someone else? Patient reports no desire to harm self or others. Onset of symptoms was April 24, 2024. 02:33 Method Of Arrival: Ambulatory kd3 02:33 Acuity: MARTINA 3 kd3 Triage Assessment: 02:36 General: Appears uncomfortable, Behavior is calm, cooperative. Pain: Complains of pain kd3 in right lower quadrant. GI: Reports lower abdominal pain. Historical: - Allergies: 02:36 No Known Allergies; kd3 - Home Meds: 02:36 Vitamin Oral tab 1 tab once daily [Active]; kd3 - Immunization history:: Adult Immunizations up to date. - Infectious Disease History:: Denies. - Social history:: Smoking status: Patient denies any tobacco usage or history of. - Family history:: not pertinent. Screenin:36 [facility] ED Fall Risk Assessment (Adult) History of falling in the last 3 months, kd3 including since admission No falls in past 3 months (0 pts) Confusion or Disorientation No (0 pts) Intoxicated or Sedated No (0 pts) Impaired Gait No (0 pts) Mobility Assist Device Used No (0 pt) Altered Elimination No (0 pt) Score/Fall Risk Level 0 - 2 = Low Risk Oriented to surroundings. Abuse screen: Denies threats or abuse. Denies injuries from another. Nutritional screening: No deficits noted. Tuberculosis screening: No symptoms or risk factors identified. Assessment: 02:37 GI: Abdomen is non-distended. kd3 04:33 Reassessment: Patient and/or family updated on plan of care and expected duration. Pain kd3 level reassessed. Patient is alert, oriented x 3, equal unlabored respirations, skin warm/dry/pink. Patient states feeling better. General: Appears uncomfortable, Behavior is calm, cooperative. Neuro: Level of Consciousness is awake, alert, obeys commands, Oriented to person, place, time, situation. Cardiovascular: Patient's skin is warm and dry. Respiratory: Airway is patent Trachea midline Respiratory effort is even, unlabored, Respiratory pattern is regular, symmetrical. Vital Signs: 02:33 BP 130 / 56; Pulse 89; Resp 16; Temp 97.8(O); Pulse Ox 100% on R/A; Weight 93.44 kg; kd3 Height 5 ft. 5 in. ; 04:32 BP 112 / 71; Pulse 86; Resp 16; Pulse Ox 99% on R/A; kd3 02:33 Body Mass Index 34.28 (93.44 kg, 165.1 cm) kd3 Jenny Coma Score: 07:28 Eye Response: spontaneous(4). Motor Response: obeys commands(6). Verbal Response: sp4 oriented(5). Total: 15. ED Course: 02:18 Patient arrived in ED. gm2 02:31 Rosemary Castellanos RN is Primary Nurse. kd3 02:31 Rishi Lomeli MD is Attending Physician. sp4 02:36 Triage completed. kd3 02:36 Arm band placed on right wrist. kd3 02:36 Patient has correct armband on for positive identification. Provided Education on: pain kd3 meds . 02:45 CBC with Diff Sent. kd3 02:45 CMP Sent. kd3 02:45 Lipase Sent. kd3 02:45 Test, Urine Sent. kd3 02:45 Urinalysis w/ reflexes Sent. kd3 03:14 US Abdomen Limited In Process Unspecified. EDMS 03:30 CT Abd/Pelvis - IV Contrast Only In Process Unspecified. EDMS 04:51 José Freire MD is Referral Physician. sp4 04:53 No provider procedures requiring assistance completed. IV discontinued, intact, kd3 bleeding controlled, No redness/swelling at site. Pressure dressing applied. Administered Medications: 02:44 Drug: NS 0.9% IV 1000 ml IV at 1 bolus Per protocol; to be given as a bolus over 60 kd3 minutes Route: IV; Rate: 1 bolus; Site: right antecubital; 05:01 Follow up: IV Status: Completed infusion kd3 02:45 Drug: Ondansetron IVP 4 mg IVP once; over 2 minutes Route: IVP; Site: right antecubital;kd3 05:01 Follow up: Response: No adverse reaction; Nausea is decreased kd3 02:45 Drug: morphine IVP or IV 4 mg IVP once over 4 mins Route: IVP; Infused Over: 4 mins; kd3 Site: right antecubital; 05:01 Follow up: Response: No adverse reaction; Pain is decreased kd3 02:56 Drug: Ketorolac IVP 30 mg IVP once Route: IVP; Site: right antecubital; kd3 05:01 Follow up: Response: No adverse reaction; Pain is decreased kd3 02:56 Drug: NS 0.9% IV 1000 ml IV at 1 bolus Per protocol; to be given as a bolus over 60 kd3 minutes Route: IV; Rate: 1 bolus; Site: right antecubital; 05:00 Follow up: IV Status: Completed infusion kd3 Medication: 02:37 VIS not applicable for this client. kd3 Outcome: 04:52 Discharge ordered by . sp4 04:53 Discharged to home ambulatory, kd3 04:53 Condition: stable 05:00 Discharge instructions given to patient, Instructed on discharge instructions, follow kd3 up and referral plans. medication usage, Demonstrated understanding of instructions, follow-up care, medications, Prescriptions given X 3, 05:01 Patient left the ED. kd3 Addendum: 04/27/2024 12:28 Addendum: Culture Results: Positive urine culture. Prescription called-in to pharmacy [facility] of choice. Augmentin called into [facility] in [place]. Signatures: Dispatcher [employer] EDMS Heaven Adame RN RN ll1 Rosemary Castellanos RN RN kd3 Rishi Lomeli MD MD sp4 Mana Kelly gm2
--- NOTE | 2024-04-24 04:53 | EDPHYS ---
Physician Documentation [facility] Name: Racquel Rolon Age: 28 yrs Sex: Female : 1995 Arrival Date: 04/24/2024 Time: 02:15 Bed 5 Private MD: ED Physician Rishi Lomeli HPI: 04/24 02:46 This 28 yrs old Female presents to ER via Ambulatory with complaints of sp4 Nausea, Abdominal Pain. 07:28 28-year-old female presents with acute onset right upper quadrant abdominal pain sp4 associated with nausea. Reports history of 4 pregnancies.. Historical: - Allergies: 02:36 No Known Allergies; kd3 - Home Meds: 02:36 Vitamin Oral tab 1 tab once daily [Active]; kd3 - Immunization history:: Adult Immunizations up to date. - Infectious Disease History:: Denies. - Social history:: Smoking status: Patient denies any tobacco usage or history of. - Family history:: not pertinent. ROS: 07:28 Constitutional: Negative for fever, chills, and weight loss, positive today for right sp4 upper quadrant abdominal pain, positive nausea 07:28 All other systems are negative, Exam: 07:28 Constitutional: This is a well developed, well nourished patient who is awake, alert, sp4 and in no acute distress. Head/Face: Normocephalic, atraumatic. Eyes: Pupils equal round and reactive to light, extra-ocular motions intact. Lids and lashes normal. Conjunctiva and sclera are not injected. Cornea within normal limits. Periorbital areas with no swelling, redness, or edema. ENT: Nares patent. No nasal discharge, no septal abnormalities noted. Tympanic membranes are normal and external auditory canals are clear. Oropharynx with no redness, swelling, or masses, exudates, or evidence of obstruction, uvula midline. Mucous membranes moist. Neck: Trachea midline, no thyromegaly or masses palpated, and no cervical lymphadenopathy. Supple, full range of motion without nuchal rigidity, or vertebral point tenderness. Chest/axilla: Normal chest wall appearance and motion. Nontender with no deformity. No lesions are appreciated. Cardiovascular: Regular rate and rhythm with a normal S1 and S2. No gallops, murmurs, or rubs. Normal PMI, no JVD. No pulse deficits. Respiratory: Lungs have equal breath sounds bilaterally, clear to auscultation and percussion. No rales, rhonchi or wheezes noted. No increased work of breathing, no retractions or nasal flaring. Abdomen/GI: Soft, with normal bowel sounds. No distension or tympany. No guarding , positive right upper quadrant abdominal tenderness Back: No spinal tenderness. No costovertebral tenderness. Skin: Warm, dry with normal turgor. Normal color with no rashes, no lesions, and no evidence of cellulitis. MS/ Extremity: Pulses equal, no cyanosis. Neurovascular intact. Full, normal range of motion. Neuro: Awake and alert, GCS 15, oriented to person, place, time, and situation. Cranial nerves II-XII grossly intact. Motor strength 5/5 in all extremities. Sensory grossly intact. Psych: Awake, alert, with orientation to person, place and time. Behavior, mood, and affect are within normal limits Vital Signs: 02:33 BP 130 / 56; Pulse 89; Resp 16; Temp 97.8(O); Pulse Ox 100% on R/A; Weight 93.44 kg; kd3 Height 5 ft. 5 in. ; 04:32 BP 112 / 71; Pulse 86; Resp 16; Pulse Ox 99% on R/A; kd3 02:33 Body Mass Index 34.28 (93.44 kg, 165.1 cm) kd3 Jenny Coma Score: 07:28 Eye Response: spontaneous(4). Motor Response: obeys commands(6). Verbal Response: sp4 oriented(5). Total: 15. MDM: 02:31 Medical Screening Exam initiated sp4 04:42 ED course: EXAM: CTAbdomen and Pelvis With Intravenous Contrast CLINICAL HISTORY: The sp4 patient is 28 years old and is Female; Abdomen pain. TECHNIQUE: Axial computed tomography images of the abdomen and pelvis with intravenous contrast. Sagittal and coronal reformatted images were created and reviewed. This CT exam was performed using one or more of the following dose reduction techniques: automated exposure control, adjustment of the mA and/or kV according to patient size, and/or use of iterative reconstruction technique. COMPARISON: US Abdomen 04/24/2024, 02:58:34 AM. FINDINGS: Lung bases: Unremarkable. No mass. No consolidation. ABDOMEN: Liver: Unremarkable. No mass. Gallbladder and bile ducts: Gallbladder is distended with multiple calcified stones, including a stone in the gallbladder neck. No ductal dilation. Pancreas: No findings to suggest acute pancreatitis. No mass visualized. No ductal dilation. Spleen: Unremarkable. No splenomegaly. Adrenals: Unremarkable. No mass. Kidneys and ureters: Unremarkable. No solid mass. No hydronephrosis. Stomach and bowel: No bowel dilatation or obstruction. No bowel wall thickening. Fluid in the lumen of the stomach without gastric wall thickening. PELVIS: Appendix: The visualized appendix is normal. No pericecal inflammation to suggest acute appendicitis. Bladder: Bladder is nearly empty. Reproductive: 2.3 cm left ovarian simple cyst. Uterus and right ovary are unremarkable. ABDOMEN and PELVIS: Intraperitoneal space: Trace free fluid in the cul-de-sac. No free air. Bones/joints: No acute fracture visualized. No dislocation. Soft tissues: Unremarkable. Vasculature: Unremarkable. No abdominal aortic aneurysm. Lymph nodes: No pathologically enlarged lymph nodes. IMPRESSION: 1. Distended gallbladder with cholelithiasis, including a stone in the gallbladder neck. Correlate clinically for cholecystitis. 2. Left ovarian simple-appearing cyst measuring 2.3 cm. No follow-up imaging is recommended.. ED course: EXAM: US Abdomen Limited, Gallbladder CLINICAL HISTORY: The patient is 28 years old and is Female; Abdomen pain TECHNIQUE: Real-time ultrasound of the right upper quadrant with image documentation. COMPARISON: CTAbdomen pelvis 04/24/2024, 03:32:21 AM. FINDINGS: Gallbladder: Distended gallbladder with multiple stones. Gallbladder wall thickening 2.8 mm in thickness. No pericholecystic fluid. Negative sonographic Perez sign. Common bile duct: Common bile duct 4.4 mm in diameter. No stones. No dilation. Pancreas: Unremarkable as visualized. IMPRESSION: Cholelithiasis.. 07:28 Differential diagnosis: Nonspecific abd pain, gastritis, cholecystitis, pancreatitis, sp4 diverticulitis, viral gastroenteritis, gastroenteritis. Data reviewed: vital signs, nurses notes, lab test result(s), radiologic studies, CT scan, ultrasound. Consideration of Admission/Observation Escalation of care including admission/observation considered. ED course: consistent with acute gallbladder colic without cholecystitis, will refer to General Surgeon . 04/24 02:33 Order name: CBC with Diff; Complete Time: 04:09 kd3 04/24 02:33 Order name: CMP; Complete Time: 04:09 kd3 04/24 02:33 Order name: Lipase; Complete Time: 04:09 kd3 04/24 02:33 Order name: Test, Urine; Complete Time: 04:09 kd3 04/24 02:33 Order name: Urinalysis w/ reflexes; Complete Time: 04:09 kd3 04/24 03:04 Order name: Urine Culture EDMS 04/24 02:33 Order name: CT Abd/Pelvis - IV Contrast Only kd3 04/24 02:49 Order name: US Abdomen Limited sp4 04/24 02:33 Order name: IV Saline Lock; Complete Time: 02:45 kd3 04/24 02:33 Order name: Labs collected and sent; Complete Time: 02:45 kd3 Administered Medications: 02:44 Drug: NS 0.9% IV 1000 ml IV at 1 bolus Per protocol; to be given as a bolus over 60 kd3 minutes Route: IV; Rate: 1 bolus; Site: right antecubital; 05:01 Follow up: IV Status: Completed infusion kd3 02:45 Drug: Ondansetron IVP 4 mg IVP once; over 2 minutes Route: IVP; Site: right antecubital;kd3 05:01 Follow up: Response: No adverse reaction; Nausea is decreased kd3 02:45 Drug: morphine IVP or IV 4 mg IVP once over 4 mins Route: IVP; Infused Over: 4 mins; kd3 Site: right antecubital; 05:01 Follow up: Response: No adverse reaction; Pain is decreased kd3 02:56 Drug: Ketorolac IVP 30 mg IVP once Route: IVP; Site: right antecubital; kd3 05:01 Follow up: Response: No adverse reaction; Pain is decreased kd3 02:56 Drug: NS 0.9% IV 1000 ml IV at 1 bolus Per protocol; to be given as a bolus over 60 kd3 minutes Route: IV; Rate: 1 bolus; Site: right antecubital; 05:00 Follow up: IV Status: Completed infusion kd3 Disposition: 07:34 Chart complete. sp4 Disposition Summary: 04/24/24 04:52 Discharge Ordered Notes: Location: Home sp4 Problem: new sp4 Symptoms: have improved sp4 Condition: Stable sp4 Diagnosis - Other cholelithiasis without obstruction sp4 - Acute right upper abdominal pain, cholelithiasis without cholecystitis sp4 Followup: sp4 - With: José Freire MD - When: 7 - 10 days - Reason: Recheck today's complaints Discharge Instructions: - Discharge Summary Sheet sp4 - Cholelithiasis sp4 Forms: - Work release form lg3 - Patient Portal Instructions sp4 Prescriptions: - Ibuprofen 800 mg Oral Tablet - take 1 tablet ORAL route every 8 hours As needed take with food; 30 tablet; sp4 Refills: 0, Product Selection Permitted - Tramadol 50 mg Oral tablet - take 1 tablet ORAL route every 8 hours as needed; 20 tablet; Refills: 0, sp4 Product Selection Permitted - ondansetron 8 mg Oral Tablet,disintegrating - take 1 tablet ORAL route every 8 hours PRN nausea; 30 tablet; Refills: 0, sp4 Product Selection Permitted Signatures: Dispatcher [employer] Rosemary Segundo RN RN kd3 Rishi Lomeli MD MD sp4 Corrections: (The following items were deleted from the chart) 02:33 02:33 CBC+H.LAB.BRZ ordered. EDMS EDMS 02:33 02:33 COMPREHENSIVE METABOLIC PANEL+C.LAB.BRZ ordered. EDMS EDMS 02:33 02:33 LIPASE+C.LAB.BRZ ordered. EDMS EDMS 02:33 02:33 Test, Urine+UC.LAB.BRZ ordered. EDMS EDMS 02:33 02:33 Urinalysis+U.LAB.BRZ ordered. EDMS EDMS
--- NOTE | 2024-04-24 05:07 | RAD REPORT ---
EXAM: CT Abdomen and Pelvis With Intravenous Contrast CLINICAL HISTORY: The patient is 28 years old and is Female; Abdomen pain. TECHNIQUE: Axial computed tomography images of the abdomen and pelvis with intravenous contrast. Sagittal and coronal reformatted images were created and reviewed. This CT exam was performed using one or more of the following dose reduction techniques: automated exposure control, adjustmen t of the mA and/or kV according to patient size, and/or use of iterative reconstruction technique. COMPARISON: US Abdomen 04/24/2024, 02:58:34 AM. FINDINGS: Lung bases: Unremarkable. No mass. No consolidation. ABDOMEN: Liver: Unremarkable. No mass. Gallbladder and bile ducts: Gallbladder is distended with multiple calcified stones, including a stone in the gallbladder neck. No ductal dilation. Pancreas: No findings to suggest acute pancreatitis. No mass visualized. No ductal dilation. Spleen: Unremarkable. No splenomegaly. Adrenals: Unremarkable. No mass. Kidneys and ureters: Unremarkable. No solid mass. No hydronephrosis. Stomach and bowel: No bowel dilatation or obstruction. No bowel wall thickening. Fluid in the lumen of the stomach without gastric wall thickening. PELVIS: Appendix: The visualized appendix is normal. No pericecal inflammation to suggest acute appendici tis. Bladder: Bladder is nearly empty. Reproductive: 2.3 cm left ovarian simple cyst. Uterus and right ovary are unremarkable. ABDOMEN and PELVIS: Intraperitoneal space: Trace free fluid in the cul-de-sac. No free air. Bones/joints: No acute fracture visualized. No dislocation. Soft tissues: Unremarkable. Vasculature: Unremarkable. No abdominal aortic aneurysm. Lymph nodes: No pathologically enlarged lymph nodes. IMPRESSION: 1. Distended gallbladder with cholelithiasis, including a stone in the gallbladder neck. Correlate clinically for cholecystitis. 2. Left ovarian simple-appearing cyst measuring 2.3 cm. No follow-up imaging is recommended. Reference: JACR 2019;17(2):248-254 Electronically signed by: Amena Potts MD 04/24/2024 04:31 AM CDT ND Due to temporary technical issues with the PACS/[employer] reporting system, reports are being silvino d by the in-house radiologist without review as a courtesy to ensure prompt reporting the interpreting radiologist is fully responsible for the content of the report. Transcribed Date/Time: 04/24/2024 5:07 AM
--- NOTE | 2024-04-24 05:22 | RAD REPORT ---
EXAM: US Abdomen Limited, Gallbladder CLINICAL HISTORY: The patient is 28 years old and is Female; Abdomen pain TECHNIQUE: Real-time ultrasound of the right upper quadrant with image documentation. COMPARISON: CT Abdomen pelvis 04/24/2024, 03:32:21 AM. FINDINGS: Gallbladder: Distended gallbladder with multiple stones. Gallbladder wall thickening 2.8 mm in thickness. No pericholecystic fluid. Negative sonograph ic Perez sign. Common bile duct: Common bile duct 4.4 mm in diameter. No stones. No dilation. Pancreas: Unremarkable as visualized. IMPRESSION: Cholelithiasis. Electronically signed by: Amena Potts MD 04/24/2024 04:15 AM CDT RP ND Due to temporary technical issues with the PACS[employer] reporting system, reports are being signed by the in-house radiologist without review as a courtesy to ensure prompt reporting the interpreting radiologist is fully responsible for the content of the report. Transcribed Date/Time: 04/24/2024 5:22 AM
[2024-04-24 07:10] VITALS: TEMP 97.8
[2024-04-24 07:11] VITALS: BP 112/71; O2SAT 99
== END 2024-04-24 05:01 | disposition home or self-care (01) ==
LOC: ER 02:15
DX: K80.80 Other cholelithiasis without obstruction (principal)
CPT/HCPCS: 36415; 74177; 76705; 80053; 81001; 81025; 83690; 85025; 87077; 87086; 87088; 87186; 96361; 96374; 96375; 99284; J7030; Q9967